=== PATIENT | male | born 1980 | race Caucasian/White ===

== ENCOUNTER → 2019-12-12 14:07 | Outpatient (BNVA) | payer OTHER, SELFPAY | PROVIDERS: PCP Internal Medicine; Visit Provider Urology | DX: Z76.89 Persons encountering health services in other specified circumstances (principal) | CPT/HCPCS: 99202 ==

== ENCOUNTER → 2020-01-23 11:26 | Outpatient (BNVA) | payer OTHER, SELFPAY | PROVIDERS: PCP Internal Medicine; Visit Provider Urology | DX: Z76.89 Persons encountering health services in other specified circumstances (principal) | CPT/HCPCS: 99202 ==

== ENCOUNTER → 2020-04-16 14:29 | Outpatient (BNVA) | payer OTHER, SELFPAY | PROVIDERS: PCP Internal Medicine; Visit Provider Urology | DX: F41.8 Other specified anxiety disorders (principal) | CPT/HCPCS: 99212 ==

== ENCOUNTER 2020-05-19 11:52 | Outpatient (REF) | payer OTHER, SELFPAY | END 2020-05-19 11:53 | disposition home or self-care (01) | LOC: HO.HMGCLDS 11:52 | PROVIDERS: PCP Internal Medicine; Visit Provider Internal Medicine | DX: Z20.822 Contact with and (suspected) exposure to COVID-19 (principal) | CPT/HCPCS: C9803; U0003; U0005 ==

== ENCOUNTER → 2020-07-08 09:53 | Outpatient (BNVA) | payer OTHER, SELFPAY | PROVIDERS: PCP Internal Medicine; Visit Provider Physician Assistant | DX: S66.312A Strain of extensor muscle, fascia and tendon of right middle finger at wrist and hand level, initial encounter (principal); W50.1XXA Accidental kick by another person, initial encounter | CPT/HCPCS: 73140; 99203 ==

== ENCOUNTER → 2020-07-15 12:58 | Outpatient (BNVA) | payer OTHER, SELFPAY | PROVIDERS: PCP Internal Medicine; Visit Provider Physician Assistant | DX: S60.031A Contusion of right middle finger without damage to nail, initial encounter (principal); W22.09XA Striking against other stationary object, initial encounter | CPT/HCPCS: 99213 ==

== ENCOUNTER → 2022-03-14 10:51 | Outpatient (BNVA) | payer OTHER, SELFPAY | PROVIDERS: PCP Internal Medicine; Visit Provider Internal Medicine | DX: S76.312A Strain of muscle, fascia and tendon of the posterior muscle group at thigh level, left thigh, initial encounter (principal); S50.01XA Contusion of right elbow, initial encounter; S30.0XXA Contusion of lower back and pelvis, initial encounter; W01.190A Fall on same level from slipping, tripping and stumbling with subsequent striking against furniture, initial encounter | CPT/HCPCS: 71101; 73080; 73562; 99203 ==

== ENCOUNTER → 2022-03-17 13:59 | Outpatient (BNVA) | payer OTHER, SELFPAY | PROVIDERS: PCP Internal Medicine; Visit Provider Internal Medicine | DX: S76.312A Strain of muscle, fascia and tendon of the posterior muscle group at thigh level, left thigh, initial encounter (principal); S50.01XA Contusion of right elbow, initial encounter; S20.211A Contusion of right front wall of thorax, initial encounter; W01.190A Fall on same level from slipping, tripping and stumbling with subsequent striking against furniture, initial encounter | CPT/HCPCS: 99213 ==

== ENCOUNTER 2022-03-24 19:41 | Outpatient (REF) | payer OTHER, SELFPAY ==
--- NOTE | ~2022-03-24 | MR_ITS ---
EXAMINATION: MR FEMUR WITHOUT CONTRAST, LEFT CLINICAL INFORMATION: Distal hamstring pain. Bruising. Pain and swelling. Difficulty with weightbearing. Popping and pain at the posterior thigh. COMPARISON: Left knee radiographs dated 03/14/2022. TECHNIQUE: Multisequence MR imaging of the left femur was obtained without contrast on a high-field strength scanner. FINDINGS: BONE: No acute osseous injury. No marrow edema. No stress reaction, fracture, or avascular necrosis. No concerning lytic or blastic osseous lesion. MUSCLES/TENDONS: Complete tear of the distal semitendinosus tendon with proximal retraction of the tendon fibers. The resultant tendon gap measures up to 12.9 cm in craniocaudal dimension with fluid in the tendon gap. Mild adjacent soft tissue edema. The remaining visualized muscles and tendons are intact. SOFT TISSUES: No additional soft tissue mass or fluid collection. MR/MR femur LT wo con IMPRESSION: Complete tear of the distal semitendinosus tendon with proximal retraction of the tendon fibers measuring up to 12.9 cm in craniocaudal dimension. Mild adjacent soft tissue edema.
== END 2022-03-24 19:42 | disposition home or self-care (01) ==
LOC: HO.MRI 19:41
PROVIDERS: PCP Internal Medicine; Visit Provider Internal Medicine
DX: M79.652 Pain in left thigh (principal); W19.XXXA Unspecified fall, initial encounter
CPT/HCPCS: 73718

== ENCOUNTER → 2022-03-25 13:29 | Outpatient (BNVA) | payer OTHER, SELFPAY | PROVIDERS: PCP Internal Medicine; Visit Provider Internal Medicine | DX: S76.312D Strain of muscle, fascia and tendon of the posterior muscle group at thigh level, left thigh, subsequent encounter (principal); W01.190D Fall on same level from slipping, tripping and stumbling with subsequent striking against furniture, subsequent encounter | CPT/HCPCS: 99213 ==

== ENCOUNTER 2024-07-01 10:36 | Outpatient (REF) | payer OTHER, SELFPAY ==
--- NOTE | ~2024-07-01 | XR_ITS ---
EXAMINATION: XR FINGERS RIGHT HISTORY: M79.644 - Pain in right finger(s) COMPARISON: There are no prior studies available for comparison. FINDINGS: Three views of the right 5th finger are submitted. Osseous mineralization is normal. There is no fracture or dislocation. The joint spaces are preserved. The soft tissues are unremarkable. XR/XR finger RT min 2V IMPRESSION: Unremarkable examination of the right 5th finger. Electronically signed by: Matt Sarmiento MD 07/01/2024 01:48 PM EDT
--- OUTSIDE RECORDS SUMMARY | 2024-07-02 11:47 | XMS_ITS | Clinical Summary ---
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
--- OUTSIDE RECORDS SUMMARY | 2024-07-02 11:48 | XMS_ITS | Continuity of Care Document ---
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 entered. Ordering Provider: GAEL CAMP Report Released Date/Time: Mar 01, 2024 05:03 PM Reporting Lab: [facility] HOSPITALRL WSTRN [facility] CENTERUSETS [address] [address] Performing Lab: [facility]OMEN'S HOSPITALRL WSTRN [facility] CENTERUSETS [address] [address] [facility] HOSPITALRL WSTRN [place] [facility] TSH THYROTROPI N [UNITS/VOL UME] IN SERUM OR PLASMA 0.93 u[IU]/mL 0.35 - 5.00 04/18 Specimen Type: SERUM No comment entered. Ordering Provider: GAEL CAMP Report Released Date/Time: Mar 01, 2024 05:03 PM Reporting Lab: [facility] HOSPITALRENCOM[facility] COUNTYTRN [facility] CENTERUSE[address] [address] Performing Lab: H[facility] WOMEN'S HOSPITALRL TRN [facility] CENTERUSETS [address] [address] [facility] HOSPITALRMOBILE INFIRMARY MEDICAL CENTERN [facility] CENTERUSE [facility] BASIC METABOLI C PANEL (non-fas ting) UREA NITROGEN [MASS/VOLU ME] IN SERUM OR PLASMA 20 mg/dL 7 - 25 10/05 Specimen Type: SERUM No comment entered. Ordering Provider: REINA HERNANDEZ Report Released Date/Time: Oct 05, 2022 02:47 PM Reporting Lab: [facility] HOSPITALRL TRN [place] [address] [address] Performing Lab: [facility] HOSPITALRL [place]STRN [place] [address] [address] [place] BASIC METABOLI C PANEL (non-fas ting) GLUCOSE [MASS/VOLU ME] IN SERUM OR PLASMA 73 mg/dL 65 - 100 10/05 Specimen Type: SERUM No comment entered. Ordering Provider: REINA HERNANDEZ Report Released Date/Time: Oct 05, 2022 02:47 PM Reporting Lab: [facility] HOSPITALRL WSTRN [facility] CENTERUSE[address] [address] Performing Lab: [facility] HOSPITALRENCOM[facility] COUNTYTRN [facility] CENTERUSE[address] [address] [place] BASIC METABOLI C PANEL (non-fas ting) SODIUM [MOLES/VOL UME] IN SERUM OR PLASMA 140 mmol/L 135 - 145 10/05 Specimen Type: SERUM No comment entered. Ordering Provider: REINA HERNANDEZ Report Released Date/Time: Oct 05, 2022 02:47 PM Reporting Lab: [facility] HOSPITALRENCOM[facility] HOS[facility] SHELBY COUNTYTRN [address] [address] Performing Lab: [facility]OMEN[facility]S HOSPITALRL TRN [facility] CENTERUSE[address] [address] [place] BASIC METABOLI C PANEL (non-fas ting) POTASSIUM [MOLES/VOL UME] IN SERUM OR PLASMA 4.2 mmol/L 3.5 - 5.0 10/05 Specimen Type: SERUM No comment entered. Ordering Provider: REINA HERNANDEZ Report Released Date/Time: Oct 05, 2022 02:47 PM Reporting Lab: [facility] HOSPITALRL TRN [facility] CENTERUSE[address] [address] Performing Lab: [facility] HOSPITALRENCOM[facility] COUNTYTRN [facility] CENTERUSE[address] [address] [place] BASIC METABOLI C PANEL (non-fas ting) CHLORIDE [MOLES/VOL UME] IN SERUM OR PLASMA 106 mmol/L 100 - 110 10/05 Specimen Type: SERUM No comment entered. Ordering Provider: REINA HERNANDEZ Report Released Date/Time: Oct 05, 2022 02:47 PM Reporting Lab: [facility] HOSPITALRENCOM[facility] COUNTYTRN [facility] CENTERUSETS [address] [address] Performing Lab: [facility] HOSPITALRENCOM[facility] COUNTYTRN [facility] CENTERUSE[address] [address] [place] BASIC METABOLI C PANEL (non-fas ting) CARBON DIOXIDE, TOTAL [MOLES/VOL UME] IN SERUM OR PLASMA 24 meq/L 20 - 30 10/05 Specimen Type: SERUM No comment entered. Ordering Provider: REINA HERNANDEZ Report Released Date/Time: Oct 05, 2022 02:47 PM Reporting Lab: [facility] HOSPITALRENCOM[facility] SHEL[facility] COUNTYTRN [address] [address] Performing Lab: [facility]ITALN [facility] [address] [facility] [address] [place] BASIC METABOLI C PANEL (non-fas ting) CREATININE [MASS/VOLU ME] IN SERUM OR PLASMA 1.31 mg/dL 0.50 - 1.40 10/05 Specimen Type: SERUM No comment entered. Ordering Provider: REINA HERNANDEZ Report Released Date/Time: Oct 05, 2022 02:47 PM Reporting Lab: [facility]ITALN [address] [address] Performing Lab: [address] [address] [employer] BASIC METABOLI C PANEL (non-fas ting) GLOMERULAR FILTRATION RATE/1.73 SQ M.PREDICTE D [VOLUME RATE/AREA] IN SERUM, PLASMA OR BLOOD BY CREATININE -BASED FORMULA (CKD-EPI) 70 mL/min 60 10/05 Specimen Type: SERUM No comment entered. Ordering Provider: REINA HERNANDEZ Report Released Date/Time: Oct 05, 2022 02:47 PM Reporting Lab: [facility]N [address] [address] Performing Lab: [address] [address] [place] HEMOGLOB IN A1C PANEL HEMOGLOBIN A1C/HEMOGL OBIN.TOTAL [...] 9.27. Ref: http://www. ngsp.org/[place] Pdata.asp Ordering Provider: ERINA HERNANDEZ Report Released Date/Time: Oct 05, 2022 02:47 PM Reporting Lab: [address] [address] Performing Lab: [facility] [address] [facility] [address] [place] LIPID PANEL, NON FASTING CHOLESTERO L [MASS/VOLU ME] IN SERUM OR PLASMA 188 mg/dL 10/05 Specimen Type: SERUM No comment entered. Ordering Provider: REINA HERNANDEZ Report Released Date/Time: Oct 05, 2022 02:47 PM Reporting Lab: [facility]OSPITALRENCOM[facility] COUNTYTRN [address] [address] Performing Lab: [facility]OMEN'S HOSPITALRL WSTRN [facility] CENTERUSETS [address] [address] [place] LIPID PANEL, NON FASTING TRIGLYCERI DE [MASS/VOLU ME] IN SERUM OR PLASMA 224 mg/dL 0 - 150 10/05 H Specimen Type: SERUM No comment entered. Ordering Provider: REINA HERNANDEZ Report Released Date/Time: Oct 05, 2022 02:47 PM Reporting Lab: [facility] HOSPITALRMOBILE INFIRMARY MEDICAL CENTERN [address] [address] Performing Lab: [facility] WOMEN'S HOSPITALRL TRN [address] [address] [place] LIPID PANEL, NON FASTING CHOLESTERO L IN LDL [MASS/VOLU ME] IN SERUM OR PLASMA BY BALDEMAR Shi 121 mg/dL 0 - 129 10/05 Specimen Type: SERUM No comment entered. Ordering Provider: REINA HERNANDEZ Report Released Date/Time: Oct 05, 2022 02:47 PM Reporting Lab: [facility] HOSPITALRMOBILE INFIRMARY MEDICAL CENTERN [address] [address] Performing Lab: [facility] HOSPITALRENCOM[facility] SHELBY COUNTYTRN [address] [address] [place] LIPID PANEL, NON FASTING CHOLESTERO L.TOTAL/CH OLESTEROL IN HDL [MASS RATIO] IN SERUM OR PLASMA 8.5 10/05 Specimen Type: SERUM No comment entered. Ordering Provider: REINA HERNANDEZ Report Released Date/Time: Oct 05, 2022 02:47 PM Reporting Lab: [facility] HOSPITALRMOBILE INFIRMARY MEDICAL CENTERN [address] [address] Performing Lab: [facility] HOSPITALRL WSTRN [place] [facility] [address] [facility] [address] [place] LIPID PANEL, NON FASTING CHOLESTERO L IN HDL [MASS/VOLU ME] IN SERUM OR PLASMA 22 mg/dL 40 - 60 10/05 L Specimen Type: SERUM No comment entered. Ordering Provider: REINA HERNANDEZ Report Released Date/Time: Oct 05, 2022 02:47 PM Reporting Lab: [facility] HOSPITALRMOBILE INFIRMARY MEDICAL CENTERN [address] [address] Performing Lab: H[facility]S HOSPITALRL [facility]N [facility] CENTERUSE[address] [address] [place] LIVER FUNCTION PROTEIN [MASS/VOLU ME] IN SERUM OR PLASMA 7.4 g/dL 6.0 - 8.3 10/05 Specimen Type: SERUM No comment entered. Ordering Provider: REINA HERNANDEZ Report Released Date/Time: Oct 05, 2022 02:47 PM Reporting Lab: [facility] [address] [address] Performing Lab: H[facility] HOSPITALRL [facility]N [address] [address] [place] LIVER FUNCTION ALBUMIN [MASS/VOLU ME] IN SERUM OR PLASMA 4.3 g/dL 3.5 - 5.0 10/05 Specimen Type: SERUM No comment entered. Ordering Provider: REINA HERNANDEZ Report Released Date/Time: Oct 05, 2022 02:47 PM Reporting Lab: [facility] [address] [address] Performing Lab: [facility] HOSPITALRMOBILE INFIRMARY MEDICAL CENTERN [facility] CENTERUSE[address] [address] [place] LIVER FUNCTION ALKALINE PHOSPHATAS E [ENZYMATIC ACTIVITY/V OLUME] IN SERUM OR PLASMA 63 U/L 40 - 150 10/05 Specimen Type: SERUM No comment entered. Ordering Provider: REINA HERNANDEZ Report Released Date/Time: Oct 05, 2022 02:47 PM Reporting Lab: [facility] HOSPITALRMOBILE INFIRMARY MEDICAL CENTERN [address] [address] Performing Lab: [facility] HOSPITALRMOBILE INFIRMARY MEDICAL CENTERN [address] [address] [facility] LIVER FUNCTION ASPARTATE AMINOTRANS FERASE [ENZYMATIC ACTIVITY/V OLUME] IN SERUM OR PLASMA 29 U/L 5 - 34 10/05 Specimen Type: SERUM No comment entered. Ordering Provider: REINA HERNANDEZ Report Released Date/Time: Oct 05, 2022 02:47 PM Reporting Lab: [address] [address] Performing Lab: [address] [address] [facility] LIVER FUNCTION ALANINE AMINOTRANS FERASE [ENZYMATIC ACTIVITY/V OLUME] IN SERUM OR PLASMA 40 U/L 10/05 Specimen Type: SERUM No comment entered. Ordering Provider: REINA HERNANDEZ Report Released Date/Time: Oct 05, 2022 02:47 PM Reporting Lab: [address] [address] Performing Lab: [address] [address] [facility] LIVER FUNCTION BILIRUBIN. TOTAL [MASS/VOLU ME] IN SERUM OR PLASMA 1.0 mg/dL 0.2 - 1.2 10/05 Specimen Type: SERUM No comment entered. Ordering Provider: REINA HERNANDEZ Report Released Date/Time: Oct 05, 2022 02:47 PM Reporting Lab: [address] [address] Performing Lab: [address] [address] [facility] Vital Signs Combined list of inpatient and outpatient Vital Signs from Department of Defense and Veterans Affairs, ranging from 12 months to all on record, depending upon the facility. Vital Sign Value Date Comments Source SYSTOLIC BLOOD PRESSURE 132 04/18/2024 12:45:58 [place] DIASTOLIC BLOOD PRESSURE 96 04/18/2024 12:45:58 [place] PULSE OXIMETRY 99 04/18/2024 12:45:58 [place] PAIN 0 04/18/2024 12:45:58 [place] TEMPERATURE 98.1 04/18/2024 12:45:58 [place] PULSE 73 04/18/2024 12:45:58 [place] RESPIRATION 16 04/18/2024 12:45:58 [place] SYSTOLIC BLOOD PRESSURE 140 09/29/2023 03:35:00 [place] DIASTOLIC BLOOD PRESSURE 80 09/29/2023 03:35:00 [place] PULSE OXIMETRY 97 09/29/2023 03:35:00 [place] [...] DC Date Status Disposition Source [place] [place] OUTPATIENT [id number] URI DEVI Mendoza 03/22 Released with Work/Duty Limitations [place] [place]- [facility] OUTPATIENT [id number] neck pain for three days BELLA KEY 04/14 Released with Work/Duty Limitations [place] [place]- 7[place] OUTPATIENT [id number] neck JAGDISH CHAVEZ 04/15 Released with Work/Duty Limitations [place] ical [place] ) [place] [facility] [place]) OUTPATIENT [id number] cut left finger NEERU CHAN 05/18 Released w/o Limitations [place]Wind [place] [facility]) [place] [place]-[facility]) OUTPATIENT [id number] BELLA Pack 06/08 Released w/o Limitations [place] [place]- [facility] [facility]AMH M01A CHC Adm) OUTPATIENT [id number] referra l for physica l therapy MILTON, CAYETANO 03/15 Released w/o Limitations [place] ([place] [facility])(AM H M01A CHC Adm) [place]Evin [facility]Phys Therapy) OUTPATIENT [id number] LETTY MARTELL 03/28 Released w/o Limitations [place] ([place]vin [facility])(Ph ys Therapy ) [place] [facility]AMH M01A CHC Adm) OUTPATIENT [id number] perm profile /knee/r esched ms delmy nolen EDIEMYKEL JEFFREY Jessica 04/19 Released w/o Limitations [place] [facility])(AM H M01A CHC Adm) [place]Evin [facility])(Opto metry - Maciel) OUTPATIENT [id number] SRC, PT had traumat ic injury, OD MIRNA EASTMAN 06/05 Released w/o Limitations [place] ([place] [facility]Op tometry - Maciel) L[place]ANIEL[place]Phys[place] [facility] OUTPATIENT [id number] MYKEL CORRAL 12/16 Released w/o Limitations [place] [facility]) [place]ANI[place] OUTPATIENT [id number] FFD, acute back pain MYKEL WOOD 12/16 Released w/o Limitations [place] [facility] [facility] OUT[place] [id number] FFD eval for back pain RACHEL ELLISON 12/17 Released with Work/Duty Limitations [place]ANIEL[place] OUTPATIENT [id number] under 42, meb phys SATHISH OROZCO 12/17 [place] w/o Limitations [place] [facility] [facility] OUTPATIENT [id number] WAB MICAH LIN 12/17 [place] Limitations [place] TELE CONSULT [id number] f/u from finding s by Dr Shawn Diamond y MYKEL WOOD 12/17 [place] OUTPATIENT [id number] f/u MFSE, MRI result/ noelle i, RAQUEL carson shoulde r RADHA Lafleur 03/23 [place] w[place]o Limitations [place] OUTPATIENT [id number] LONG HX BILATER AL SHOULDE R PAIN FACING WAB-MELANIE L FOR ADVANCI NG CARE MYKEL WOOD 05/25 [place]o Limitations [place] OUTPATIENT [id number] rom-kelton at shoulde r pain VALERIO LAWRENCE R 08/10 [place]ased w/o Limitations [place] [facility] [facility] OUT[place]IENT [id number] RE-DO PART 2 WAB RACHEL ELLISON 09/17 Released with Work/Duty Limitations [place] [facility] Outpatient Encounter [id number] Diagnos is: ICD-10- CM Z02.89 Encount er for other adminis trative examina tions WENDY LAYNE 01/02 [place] [facility] [facility] [place] [facility] Outpatient Encounter [id number] 03/02 [facility] [place] [facility] En[facility] [id number] 03/20 [facility] [place] [facility] [facility] [place] Outpatient Encounter [id number] 04/17 [place] [facility] Encounter [id number] 05/17 [facility] [place] [facility] [facility] [place] Encounter [id number] 05/23 [facility] [place] [facility] [place] Outpatient Encounter [id number] 05/23 [facility] O/P EST HI 40 MIN [id number] Diagnos is: ICD-10- CM M54.50 Low back pain, unspeci fied HORNER,VICT ORIA J 06/14 [place] [facility] Encounter [id number] 06/21 [facility] [place] [facility] En[facility] [id number] 07/11 [facility] [place] [facility] [facility] [place] OFF[facility] O/P EST SF 10 MIN [id number] Diagnos is: ICD-10- CM M54.50 Low back pain, unspeci fied GAUNYA,CHR ISTOPHER M 07/12 [facility] Encounter [id number] 07/13 [facility] [place] [facility] [facility] [place] Encounter [id number] 07/31 [facility] [place] OFFICE O/P EST MOD 30 MIN [id number] Diagnos is: ICD-10- CM I10 Essenti al (primar y) hyperte nsion ZIMMERMAN,DA VID A 09/27 [place] [facility] OFF/OP EST JUNE X REQ PHY/QHP [id number] Diagnos is: ICD-10- CM Z71.89 Other specifi ed education counselor ing ASHLYN BELLA O 10/02 [place] [facility] Outpatient Encounter [id number] 10/10 [facility] Outpatient Encounter [id number] 10/16 [facility] Outpatient Encounter [id number] 01/15 [facility] PRO PHONE CALL 5-10 MIN [id number] Diagnos is: ICD-10- CM F90.9 Attenti on-defi cit hyperac tivity disorde r, unspeci fied type ME CHRISTY TAYLOR N 01/23 [facility] Outpatient Encounter [id number] 01/23 [facility] OFF/OP CONSLTJ NEW/EST HI 55 [id number] Diagnos is: ICD-10- CM 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, combine d type CONRADOGAEL T 03/01 [facility] Out[facility] Encounter [id number] 03/01 [facility] Encounter [id number] 03/01 [facility] En[facility] [id number] 04/17 [facility] [place] OFF/OP EST JUNE X REQ PHY/QHP [id number] Diagnos is: ICD-10- CM M25.541 Pain in joints of right hand HAYDER LARA IC K 04/18 [place] [facility] Encounter [id number] 04/18 [facility] Encounter [id number] 04/19 [facility] Encounter [id number] 04/22 [facility]counter [id number] 04/22 [facility] Out[facility] Encounter [id number] 04/29 [facility] OFFICE O/P EST SF 10 MIN [id number] Diagnos is: ICD-10- CM M79.643 Pain in unspeci fied hand KEMAR,BEBE TIMOTEO M 04/29 [facility] SYN[facility] AUDIO-VIDE O EST MOD 30 [id number] Diagnos is: ICD-10- CM 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, combine d type GAEL CAMP 05/03 [facility] Outpatient Encounter [id number] 05/03 [facility] Out[facility] Encounter [id number] 05/08 [facility] Out[facility] Encounter [id number] 06/04 [facility] Out[facility] Encounter [id number] 06/04 [facility] Out[facility] Encounter [id number] 06/05 [facility] Out[facility] Encounter [id number] 06/07 [facility] [...] Psychiatric Evaluation Review of Records and Reports [id number] 09/18/19 10 ZAHRA ALCARAZ [facility] Psychiatric Therapy Preparation of Psychiatric Status Report Psychiatric Therapy Preparation of Psychiatric Status Report [id number] 09/18/19 10 ZAHRA ALCARAZ [facility] Psychiatric Evaluation Comprehensive Examination Psychiatric Evaluation Comprehensive Examination [id number] 09/18/19 10 ZAHRA ALCARAZ [facility] Range Of Motion Evaluation Of Extremity Range Of Motion Evaluation Of Extremity 79409 08/11/19 10 LAWRENCE LUO [facility] Patient Counseling Medical Management Individual Patient Patient Counseling Medical Management Individual Patient [id number] 12/18/19 09 CHEYENNE BURKS Threshold Audiogram (Pure Tone) Threshold Audiogram (Pure Tone) 12307 12/18/19 09 CHEYENNE BURKS Visual Function Screening Visual Function Screening 30065 12/18/19 09 SATHISH OROZCO [facility] Range Of Motion Evaluation Of Extremity Range Of Motion Evaluation Of Extremity 97527 12/17/19 09 MYKEL CORRAL [facility] Spectacles Services Fitting Monofocals (Not For Aphakia) Spectacles Services Fitting Monofocals (Not For Aphakia) 94891 06/06/19 07 MIRNA EASTMAN Determination Of Refractive State Determination Of Refractive State 83520 06/06/19 07 MIRNA EASTMAN Ophthalmological New Patient Start Comprehensive Care Ophthalmological New Patient Start Comprehensive Care [id number] 06/06/19 07 MIRNA EASTMAN Physical Medicine - Group Physical Therapy Se ion Physical Medicine - Group Physical Therapy Session [id number] 03/28/19 06 LETTY MARTELL Phys Therapy Education Self Care Training - Per 15 Minutes Phys Therapy Education Self Care Training - Per 15 Minutes [id number] 03/28/19 06 LETTY MARTELL Physical Medicine Physical Therapy Evaluation Physical Medicine Physical Therapy Evaluation [id number] 04/15/19 05 JAGDISH CHAVEZ Exercises A isted Exercises For ROM Exercises Assisted Exercises For ROM 60863 04/15/19 05 JAGDISH CHAVEZ Training And Self-Care Skills Additional 15 Minutes Training And Self-Care Skills Additional 15 Minutes 89092 04/15/19 05 JAGDISH CHAVEZ Modalities Cryotherapy Cold Packs Modalities Cryotherapy Cold Packs [id number] 04/15/19 05 JAGDISH CHAVEZ APPLICATION OF A MODALITY TO 1 OR MORE AREAS; HOT OR COLD PACKS 04/15/19 05 [facility] PHYS/OTH QUALIFIED HEALTH INLETTER QUALIFIED,EDUCATION,T RAIN,LICENSURE/REGULA TION (WHEN APPLICABLE) EDUC SER RENDERED TO PATS IN A GRP SETTING (EG,,OBESITY, OR DIABETIC INSTRUCT) 03/03/19 05 [facility] SKIN TEST; TUBERCULOSIS, INTRADERMAL 06/07/19 07 [facility] FITTING OF SPECTACLES, EXCEPT FOR APHAKIA; MONOFOCAL 06/06/19 07 [facility] ANTHRAX VACCINE, FOR SUBCUTANEOUS OR INTRAMUSCULAR USE 06/03/19 06 [facility] SELF-CARE/HOME MANAGMENT TRAIN (EG,ACT OF DAILY LIVING (ADL) &COMPENSAT TRAIN,MEAL PREPARATION,SAFETY PROCS,AND INSTRUCT IN USE OF ASST TECHNOLOGY DEV/ADPT EQUIP) DIR ONE-ON-ONE CONT,EA 15 MINUTES 03/28/19 06 [facility] HEPATITIS B VACCINE (HEPB), ADULT DOSAGE, 3 DOSE SCHEDULE, FOR INTRAMUSCULAR USE 03/02/19 06 [facility] PSYCHIATRIC EVALUATION OF HOSPITAL RECORDS, OTHER PSYCHIATRIC REPORTS, PSYCHOMETRIC AND/OR PROJECTIVE TESTS, AND OTHER ACCUMULATED DATA FOR MEDICALDIAGNOSTIC PURPOSES 09/18/19 10 [facility] RANGE OF MOTION MEASUREMENTS AND REPORT (SEPARATE PROCEDURE); EACH EXTREMITY (EXCLUDING HAND) OR EACH TRUNK SECTION (SPINE) 08/11/19 10 [facility] EDUCATION &TRAINING, PATIENT SELF-MGT QUALIFIED, NONPHYSICIAN HEALTH INLETTER USING STDIZED CURRICULUM, [id number] W THE PATIENT (COULD INCL CAREGIVER/FAMILY) EA 30 MIN; INDIVIDUAL PATIENT 12/18/19 09 [facility] VIS FUNCT SCREEN,AUTOMAT/SEMI-A UTOMAT BILAT QUANT DETERM VISUAL ACUITY,OCULAR ALIGN,COLOR VISION,PSEUDOISOCHROM AT PLATES,& FIELD VIS (MAY INC ALL/SOME SCRN DETERM FOR CONTRAST SENSITIV,VIS UND GLARE) 12/18/19 09 [facility] RANGE OF MOTION MEASUREMENTS AND REPORT (SEPARATE PROCEDURE); EACH EXTREMITY (EXCLUDING HAND) OR EACH TRUNK SECTION (SPINE) 12/17/19 09 [facility] Social History Combined list of available smoking, tobacco, and other social history from 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 Social History Type Response Date Comment [facility] Tobacco smoking status [facility] [place] History of tobacco use VA-TOBACCO FORMER USER 10/05/2022 [place] History of tobacco use QUIT TOBACCO USE > 7 YEARS AGO 04/16/2013 NO [place] History of tobacco use QUIT TOBACCO USE 1-7 YEARS AGO 04/02/2012 [place] History of tobacco use QUIT TOBACCO USE 1-7 YEARS AGO 03/21/2011 [place] History of tobacco use QUIT TOBACCO USE 1-7 YEARS AGO 11/11/2009 [place] History of tobacco use QUIT TOBACCO USE 1-7 YEARS AGO 08/27/2008 quit 2 years ago. [place] History of tobacco use QUIT TOBACCO USE 1-7 YEARS AGO [facility] History of tobacco use QUIT TOBACCO USE 1-7 YEARS AGO 04/02/[facility] History of tobacco use CURRENT SMOKER 07/24/2006 JONNIE This section is an empty social history section. [facility] Plan of Care List of future care activities from Department of 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 Additional future care activities may be listed in the Assessment and Plan section. Date/Time Care Activity Care Activity Detail Facili ty 07/01/2024 AMBULATORY - MEDICINE [facility]
== END 2024-07-01 10:37 | disposition home or self-care (01) ==
LOC: HO.HOSX 10:36
DX: S63.616A Unspecified sprain of right little finger, initial encounter (principal)
CPT/HCPCS: 73140

== ENCOUNTER 2024-07-01 13:15 | Outpatient (AMB) | payer OTHER, SELFPAY ==
[2024-07-01 13:21] VITALS: BMI 33.6
--- NOTE | 2024-07-01 13:21 | A.OFFVIS_ITS ---
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 Referral states injury occurred on 04/17/24 however patient states injury happened the end of April,. Patient states he fell down the stairs, unsure how he injured his finger. Patient reports pain at the MCP joint, reports tenderness. Denies numbness, tingling, finger locking. Patient is not taking anything for pain at this time. 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 Referral states injury occurred on 04/17/24 however patient states injury happened the end of April,. Patient states he fell down the stairs, unsure how he injured his finger. Patient reports pain at the MCP joint, reports tenderness. Patient reports that most of this pain is on the dorsal and radial aspect of the 5th MCP joint. Denies numbness, tingling, finger locking. Patient is not taking anything for pain at this time. 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 Neuro: Normal sensation of the tips of all digits of the right hand at this time Vascular: Cap refill brisk Pain: Tenderness to palpation about the dorsal and radial aspect of the 5th MCP joint of the right hand No tenderness to palpation of the ulnar aspect No tenderness to palpation elsewhere in the right hand or 5th digit There are Good endpoints with varus and valgus testing of the MCP joint of the right small finger, but patient does report significant pain, particularly with testing of the radial collateral ligament of the right 5th MCP. ROM: Patient is able to make a closed fist and extend all digits of the right hand fully and without difficulty Skin: No lacerations or abrasions. General: No ecchymosis, erythema, or evidence of infection. Psych: Appears grossly normal Affect normal Attitude cooperative Results Reviewed Results Reviewed: X-rays obtained in the office today and independently reviewed by me, Tarik Reyes PA-C, demonstrate no fracture or acute bony abnormality of the right small finger. Assessment & Plan Assessment & Plan (1) Finger pain, right: Code(s): M79.644 - Pain in right finger(s) Category: Medical (2) Sprain of right little finger: Code(s): S63.616A - Unspecified sprain of right little finger, initial encounter Category: Medical Plan 1. Sprain of radial collateral ligament of right small finger MCP joint Patient is educated about this condition Patient is educated about the typical treatment course At this time, patient is informed that there is no acute surgical intervention indicated for this injury Patient is referred to occupational therapy for range of motion and strengthening of the right hand in the setting of this injury Patient is also advised that he can carlene tape the fingers in high-risk situations to prevent the finger from wrenching and causing significant pain Patient is amenable to this plan Follow-up as needed Orders: Orders XR finger RT min 2V Today M79.644 - Pain in right finger(s) OT Evaluation and Treatment Today M79.644 - Pain in right finger(s) Coding Level of Care Code New Pt Level 3 (18750) Diagnoses Finger pain, right M79.644 Sprain of right little finger S63.616A
--- OUTSIDE RECORDS SUMMARY | 2024-07-01 13:33 | XMS_ITS | Clinical Summary ---
Author Organization [facility] Address [address] [place] [address] Care Team Providers Care Bench Inspector Name Role Phone Unavailable Primary Care Provider Unavailabl e Social History Tobacco Use Types Packs/Day Years Used Date Smoking Tobacco: Never Assessed Sex and Gender Information Value Date Recorded Sex Assigned at Not on file Legal Sex Male 6:31 PM EDT Gender Identity Not on file Sexual Orientation Not on file Plan of Treatment Health Maintenance Due Date Last Done Comments Hepatitis C Virus Screening 1982 HIV Screening 1995 DTaP/Tdap/Td Vaccines (1 - Tdap) 2001 Hepatitis B Vaccines (1 of 3 - 19+ 3-dose series) 2001 COVID-19 Vaccine (2023-2 5 season) 2023 HPV Vaccines Aged Out No longer eligi ble based on patient's age to complete this topic Pneumococcal Vaccine: Pediat nancie (0-5 Years) and At-Risk Patients (6 to 49 Years) Aged Out No longer eligible b ased on patient's age to complete this topic
--- OUTSIDE RECORDS SUMMARY | 2024-07-01 13:33 | XMS_ITS | Encounter Summary ---
Author Name [facility] Address [address] [place] [address] Care Team Providers Care Project Engineer Chemicals Name Role Phone MEHUL ZIMMERMAN Primary Care Provider Unavailabl e Insurance Providers: All historical and current Section Date Range: From patient's date of to the date document was created. This section includes the names of all active insurance providers for the patient. Insurance Provider Type of Coverage Plan Name Start of Policy Coverage End of Policy Coverage Group Number Member ID Insurance Provider's Telephone Number Policy Carrington's Name Patient's Relationship to Policy Carrington [employer] July 11, 2006 TRRX [id number] MCKAY,CHR ISTOPHER PATIENT [employer] TRICA RE DODA* Feb 20, 2017 DODA [id number] [phone] MCKAY,CHR ISTOPHER PATIENT [facility] 2017 [facility] T Feb 20, 2017 (WNR) [facility] [id number] [phone] MCKAY,CHR ISTOPHER PATIENT [facility] 2024 [facility]LE[facility] T Feb 21, 2024 [id number] MCKAY,CHR ISTOPHER PATIENT [employer] (WNR) STAND ELI July 11, 2006 [facility] [id number] [facility] PATIENT Selected Encounter This section includes the information on record at [place] for the Encounter. Date/Time Encounter Type Encounter Description Reason Provider Source Oct 03, 2023 10:00 AM OFF/OP EST JUNE X REQ PH[facility] ICD-10-CM Z71.89 Other specified counseling MARY BELLA Marisabel Encounter Template Text not used by [place] Assessments - Encounter Diagnoses This section includes the primary and secondary diagnoses documented for the Encounter. Date/Time Primary/Secondary Diagnosis Diagnosis Name Provider Source Oct 03, 2023 04:15 PM PRIMARY Other specified counseling MARY BELLA ASHER Plan of Treatment: Future Appointments (+ 6 months) and Future Tests (+/- 45 days) The Plan of Treatment section includes future care activities for the patient from all [place] [facility] This section includes future appointments and future orders which are active, pending or scheduled. Future Appointments This section includes appointments that were scheduled to occur 6 months from the date of the Encounter, up to a maximum of 20 appointments. The data comes from all [facility]. Appointment Date/Time Appointment Type Appointme nt Facility Name Oct 04, 2023 02:30 PM AMBULATORY - NONE [facility] Oct 09, 2023 10:00 AM AMBULATORY - NONE [facility] Mar 01, 2024 04:00 PM AMBULATORY - PSYCHIATRY [facility] Mar 01, 2024 04:00 PM [facility] Active, Pending, and Scheduled Orders This section includes a listing of several types of active, pending, and scheduled orders, including clinic medications orders, diagnostic test orders, procedure orders and consult orders; where the start date of the order is 45 days before the date of the Encounter or 45 days after the date of theEncounter. The data comes from all [facility]. Test Date/Time Test Type Test Details Facility Name Sep 28, 2023 12:00 AM Laboratory - Chemi stry Order VITAMIN D (25-OH) BLOOD (SST-SERUM) [facility] Sep 28, 2023 12:00 AM Laboratory - Chemi stry Order MAGNESIUM BLOOD (SST-SERUM) [facility] Sep 28, 2023 12:00 AM Laboratory - Chemi stry Order VITAMIN B12 BLOOD (SST-SERUM) [facility] Sep 28, 2023 12:00 AM Laboratory - Chemi stry Order CBC AND DIFF (AUTO) BLOOD (LAV-BLOOD) [facility] Sep 28, 2023 12:00 AM Laboratory - Chemi stry Order URINALYSIS URINE [facility] Sep 28, 2023 12:00 AM Laboratory - Chemi stry Order MICROALBUMIN CREATININE RATIO PANEL URINE (RANDOM) [facility] Sep 28, 2023 12:00 AM Laboratory - Chemi stry Order LIPID PANEL, NON FASTING BLOOD (SST-SERUM) [facility] Sep 28, 2023 12:00 AM Laboratory - Chemi stry Order LIVER FUNCTION BLOOD (SST-SERUM) [facility] Sep 28, 2023 12:00 AM Laboratory - Chemi stry Order BASIC METABOLIC PANEL (non-fasting) BLOOD (SST-SERUM) [facility] Sep 28, 2023 12:00 AM Laboratory - Chemi stry Order TSH BLOOD (SST-SERUM) [facility] Sep 28, 2023 12:00 AM Laboratory - Chemi stry Order HEMOGLOBIN A1C PANEL BLOOD (LAV-BLOOD) [facility] Social History: Smoking Status (Most current) and Tobacco Use (All prior to encounter date) This section includes the most current, and the historical, smoking and tobacco- related health factors from the [place] facility where the Encounter took place. Current Smoking Status This section includes the most current smoking, or tobacco-related health factor, from the [place] facility where the Encounter took place. Date/Time Current Smoking Status Comment Facil [facility] Sep 28, 2023 03:30 PM VA-TOBACCO NEVER USED [facility] Tobacco Use History This section includes a history of the smoking, or tobacco-related health factors, that were collected on or before the date of the Encounter. The data comes from the [place] facility where the Encounter took place. Date/Time Smoking Status/Tobacco Use Comment F acility Oct 05, 2022 02:00 PM VA-TOBACCO FORMER USER [place] Oct 05, 2022 02:00 PM VA-TOBACCO QUIT 5 TO < 15 YRS [facility] [facility] Apr 16, 2013 10:54 AM QUIT TOBACCO USE > 7 YEARS AGO NO [place] Apr 02, 2012 01:46 PM QUIT TOBACCO USE 1-7 YEARS AGO [facility] [facility] Encounter Notes: All associated encounter notes This section contains the clinical notes associated to the Encounter. Date/Time Encounter Note(s) Provider Source Oct 03, 2023 03:56 PM SOCIAL WORK CONSUL T: LOCAL TITLE: CONSULT REPORT/MENTAL HEALTH/SOCIAL WORK STANDARD TITLE: SOCIAL WORK CONSULT DATE OF NOTE: OCT 03, 2023@15:56 ENTRY DATE: OCT 03, 2023@15:57:02 AUTHOR: MARY BELLA COSIGNER: URGENCY: STATUS: COMPLETED VA Video Connect (VVC) Standard Documentation VVC Clinician Resources Only: E911 (Emergency Call Relay Center): [phone] [facility] Crisis Line - [address] [facility] Suicide Coordinator [phone], Ext. [phone]; Back-up Ext. [phone] [place] Police, [place], [place] [phone] Introduction: Visit is being conducted by [place] [employer]. Hutchins identified with 2 identifiers: [X] Full Name [X] Date of [ ] VA ID Card Emergency Plan: confirmed and/or provided the following information in case of emergency or technology failure. PATIENT PHONE - PHONE NUMBER [CELLULAR] - Is patient phone number correct, if not, enter below: Hutchins's phone number: s/p OSCAR MCKAY [address], [place], [address] Hutchins's present location and address for appointment: s/a Hutchins's emergency contact name and phone number: as in chart Hutchins reported that location is private and safe: Yes Informed Consent: Hutchins informed of the risks and benefits of Telehealth video care. Hutchins has the right to refuse video services. If refuses video visit, a [id number] visit will be scheduled. verbalized consent for this video visit: Yes Hutchins provided consent for any other persons present for visit: N/A If yes, who and relationship to patient: Secure visit: Visit was locked for security and privacy: Yes is referred to by Medical, purpose of today's appt is to clarify request and to gather some information. 43 y/o, w/m, [place], OEF . He is rated at 100% SC, 70% for PTSD. I've been seeing a therapist in the community for about a year now, I found a therapist bc I was going through some romance relationship problems. Well as she has gotten to know me she really thinks I have ADHD pretty bad. She been suggesting I see someone for medication for a while now, I told my primary and he put in the consult. He describes his ADHD- I go up into the attic to work on a project and I am like paralyzed, I can do the work but I just can't organize myself. And then when I do start I don't stop no matter what. I will go and try to find a tool I had in my hand just a few minutes before not knowing where I put it. I walk into a room to get something and I forget why I am there. As he is describing this it is obvious he is quite frustrated and annoyed w himself. Review of chart, in 2012 he and an intake done by Katerin Tapia and did see Dr Bernal a few times. He was also seen at the [facility] for about a year but didn't have a good connection w the therapist so he just stopped. Hutchins was cooperative, leading questions asked, he was able to explain himself well. Consults placed. /maia/ DREW Myers SENIOR SQL SERVER DEVELOPER Signed: 10/03/2023 16:15 MARY BELLA [place]
--- OUTSIDE RECORDS SUMMARY | 2024-07-01 13:34 | XMS_ITS | Encounter Summary ---
Author Name [facility] [place] Address [address] [place] [address] Care Team Providers Care Supervisor Nuclear Medicine Name Role Phone MEHUL ZIMMERMAN Primary Care [...] SCRIPTS PRESCRIPT ION July 11, 2006 TRRX [id number] NELY,CHR ISTOPHER PATIENT EXPRESS SCRIPTS TRICA RE DODA* Feb 20, 2017 DODA [id number] [phone] NELY,CHR ISTOPHER PATIENT [facility] 2017 SELEC T Feb 20, 2017 (WNR) SELECT [id number] [phone] MCKAY,CHR ISTOPHER PATIENT [facility] 2024 SELEC T Feb 21, 2024 [id number] NELY,CHR ISTOPHER PATIENT ZZTRICARE (WNR) STAND ELI July 11, 2006 [facility] [id number] [phone] [facility] PATIENT Selected Encounter This section includes the information on record at [place] for the Encounter. Date/Time Encounter Type Encounter Description Reason Provider Source Apr 29, 2024 02:30 PM OFFICE O/P EST SF 10 MIN GENERAL INTERNAL MEDICINE ICD-10-CM M79.643 Pain in unspecified hand ROSA ELENA REINOSO IHE Encounter Template Text not used by [place] Assessments - Encounter Diagnoses This section includes the primary and secondary diagnoses documented for the Encounter. Date/Time Primary/Secondary Diagnosis Diagnosis Name Provider Source Apr 29, 2024 03:06 PM PRIMARY Pain in unspecified hand [facility]A [facility]LE[facility] [place] [facility] Plan of Treatment: Future Appointments (+ 6 months) and Future Tests (+/- 45 days) The Plan of Treatment section includes future care activities for the patient from all [place] treatmentfacilities. This section includes future appointments and future orders which are active, pending or scheduled. Future Appointments This section includes appointments that were scheduled to occur 6 months from the date of the Encounter, up to a maximum of 20 appointments. The data comes from all [place] treatment facilities. Appointment Date/Time Appointment Type Appointme nt Facility Name May 03, 2024 05:00 PM AMBULATORY - [place] [facility] [facility] May 03, 2024 05:00 PM AM[place] [facility] July 01, 2024 01:15 PM AMBULATORY - MEDICINE [facility] [place] [facility] July 04, 2024 11:00 AM AMBULATORY - MEDICINE [facility] [place] [facility] July 04, 2024 11:01 AM AMBULATORY - MEDICINE [facility] [place] [facility] Jul 26, 2024 02:30 PM [facility] Aug 09, 2024 02:00 PM AMBUL[place]ORY - [place] [facility] Aug 09, 2024 02:00 PM [facility] [place] [facility] Active, Pending, and Scheduled Orders This section includes a listing of several types of active, pending, and scheduled orders, including clinic medications orders, diagnostic test orders, procedure orders and consult orders; where the start date of the order is 45 days before the date of the Encounter or 45 days after the date of theEncounter. The data comes from all [place] treatment facilities. Test Date/Time Test Type Test Details Facility Name May 03, 2024 05:52 PM Consult Order HOME SLEEP STUDY NOX/SPOPC OUTPT Cons Tumbling Instructor's Choice [facility] May 08, 2024 12:24 PM Consult Order [facility] Cons Tumbling Instructor's Choice [place] Lab Results: +/- 30 days of the encounter This section includes the Chemistry and Hematology Lab Results on record with [place] for the patient. Radiology Reports and Pathology Reports are provided separately, in subsequent sections. Lab Results This section contains the Chemistry/Hematology Results that were resulted 30 days before or 30 daysafter the date of the Encounter. Date/Time Source Result Type Result - Unit Interpretation Reference Range Specimen Type Comment Apr 18, 2024 12:28 PM [facility] DRUGS OF ABUSE URINE Specimen Type: URINE Comment: Urine with Cr <5 is diluted or substituted. Cr between 5 and 20 is very dilute. Urine with SG of 1.001 or less is diluted or substituted. SG of 1.003 or less is very dilute. Urine with a pH <3 or >11 has been adulterated and is unsuitable for testing by our current method. Urine with pH between 3 and 4 OR 10 and 11 may have been adulterated. FENTANYL CONFIRMATION NOT SENT BY LAB. Ordering Provider: GAEL CAMP Released Date/Time: Mar 01, 2024 05:00 PM Reporting Lab: [address] [address] Performing Lab: [address] [address] AMPHETAMINES SCREEN NONE-DETECTED None-Detected, Cutoff = 1000 ng/mL BENZODIAZEPINES SCREEN NONE-DETECTED Non e-Detected, Cutoff = 200 ng/mL COCAINE SCREEN NONE-DETECTED None-Detect ed,Cutoff = 300 ng/mL OPIATES SCREEN NONE-DETECTED None-Detect ed, Cutoff = 300 ng/mL CANNABINOIDS SCREEN POSITIVE HH None-Detect ed,Cutoff = 50 ng/mL BARBITURATES SCREEN NONE-DETECTED None-D etected,Cutoff = 200 ng/mL OXYCODONE SCREEN NONE-DETECTED None-Dete cted, Cutoff = 100 ng/mL BUPRENORPHINE (URINE) NONE-DETECTED None Detected, Cutoff = 10.0 ng/mL ALCOHOL, ETHYL URINE NONE-DETECTED mg/dL NONE-DETECTED, cutoff = 10 mg/dL FENTANYL SCREEN NONE-DETECTED ng/mL Nega tive: Cutoff = 1.00 ng/mL PH, ORLY 6.1 [pH] 4-10 CREATININE, ORLY 107.97 mg/dL >20 SP.GRAVITY, ORLY 1.017 1.003-1.020 Apr 18, 2024 12:28 PM [facility] CBC BLOOD Specimen Type: BLOOD No comment entered. Ordering Provider: GAEL CAMP Report Released Date/Time: Mar 01, 2024 05:03 PM Reporting Lab: [address] [address] Performing Lab: [address] [address] WBC 4.73 10*3/uL 4.50-11.00 RBC 5.29 10*6/uL 4.23-5.66 HGB 15.9 g/dL 12.8-17 HCT 47.4 39.2-50.4 MCV 89.6 fL 82-99 MCHC 33.5 g/dL 30.8-35.1 PLT 228 10*3/uL 140-360 RDW-CV 13.2 12.0-16.0 MCH 30.1 pg 26.2-32.6 Apr 18, 2024 12:28 PM [facility] LIVER FUNCTION SERUM Specimen Type: SERUM No comment entered. Ordering Provider: GAEL CAMP Report Released Date/Time: Mar 01, 2024 05:03 PM Reporting Lab: [address] [address] Performing Lab: [address] [address] PROTEIN,TOTAL 7.3 g/dL 6.0-8.3 ALBUMIN 4.2 g/dL 3.5-5.0 ALKALINE PHOSPHATASE 87 U/L 40-150 AST 47 U/L H 5-34 ALT 87 U/L H BILIRUBIN, TOTAL 0.8 mg/dL 0.2-1.2 Apr 18, 2024 12:28 PM [facility] BASIC METABOLIC PANEL (non-fasting) SERUM Spe cimen Type: SERUM No comment entered. Ordering Provider: GAEL CAMP Report Released Date/Time: Mar 01, 2024 05:03 PM Reporting Lab: [facility] [address] [address] Performing Lab: [facility] [address] [address] UREA NITROGEN 13 mg/dL 7-25 GLUCOSE 84 mg/dL 65-100 SODIUM 138 mmol/L 135-145 POTASSIUM 4.1 mmol/L 3.5-5.0 CHLORIDE 104 mmol/L 100-110 CO2 25 meq/L 20-30 CALCIUM 9.2 mg/dL 8.5-10.2 CREATININE, Serum 1.24 mg/dL 0.50-1.40 eGFR(CKD-EPI 2020) 74 mL/min >60 Apr 18, 2024 12:28 PM [facility] LIPID PANEL, NON FASTING SERUM Specimen Type: SERUM No comment entered. Ordering Provider: GAEL CAMP Report Released Date/Time: Mar 01, 2024 05:03 PM Reporting Lab: [facility] [address] [address] Performing Lab: [facility] [address] [address] CHOLESTEROL 170 mg/dL TRIGLYCERIDE 93 mg/dL 0-150 LDL calculated 119 mg/dL 0-129 CHOL/HDL 5.3 HDL CHOLESTEROL 32 mg/dL L 40-60 Apr 18, 2024 12:28 PM [facility] TSH SERUM Specimen Type: SERUM No comment entered. Ordering Provider: GAEL CAMP Report Released Date/Time: Mar 01, 2024 05:03 PM Reporting Lab: [facility] [address] [address] Performing Lab: [address] [address] TSH 0.93 u[IU]/mL 0.35-5.00 Radiology Reports: +/- 30 days of the encounter Radiology Reports For cases when an order for radiology services may have been completed prior to the date of the Encounter, the report list includes the Radiology Reports that were completed up to 30 days before dateof the Encounter. For cases when an order for radiology services may have been completed after the date of the Encounter, the report list also includes the Radiology Reports that were completed up to30 days after date of the Encounter. The data comes from all [place] treatment facilities. Date/Time Radiology Report Provider Source Apr 18, 2024 01:53 PM HAND3 OR MORE VIEWS(RIGHT): OSCAR MCKAY JENNIFER [id number] -[phone] M Ex Date: APR 18, 2024@13:53 Req Phys: MEHUL ZIMMERMAN Loc: [facility] SICK CALL RN (Req'g Loc) Img Loc: [facility] 1 Service: [place] [address] (Case [id number] COMPLETE) HAND3 OR MORE VIEWS(RIGHT) (RAD Detailed) CPT:11314 Reason for Study: fall with swelling and pain Clinical History: Report Status: Verified Date Reported: APR 19, 2024 Date Verified: APR 19, 2024 Electrifier Operator E-Sig: Report: HAND3 OR MORE VIEWS(RIGHT) HISTORY: fall with swelling and pain COMPARISON: None TECHNIQUE: 3 view(s) of the right hand, submitted to the [place] National Teleradiology Program (NTP) for interpretation. FINDINGS: No evidence of acute fracture or malalignment. Soft tissue swelling about the ulnar aspect of the hand. Scattered early to mild degenerative changes at the interphalangeal joints. No erosions. No soft tissue mineralization. Impression: No acute osseous abnormalities. READING PHYSICIAN: Kaden Webster MD -[id number] 04/19/2024 12:57 PST [facility] National Teleradiology Program [phone] (For Medical Practitioner Use Only) Attention Patients / Veterans: If you have questions or concerns about these test results, please contact your ordering provider or primary care team. Primary Diagnostic Code: NO ALERT REQUIRED Primary Interpreting Staff: RADIOLOGY,OUTSIDE SERVICE, Staff Physician / RADIOLOGY,OUTSIDE SERVICE [facility] Encounter Notes: All associated encounter notes This section contains the clinical notes associated to the Encounter. Date/Time Encounter Note(s) Provider Source Apr 29, 2024 02:28 PM TELEHEALTH NOTE: LOCAL TITLE: TELE EMERGENCY CARE NOTE STANDARD TITLE: TELEHEALTH NOTE DATE OF NOTE: APR 29, 2024@14:28 ENTRY DATE: APR 29, 2024@14:28:43 AUTHOR: ROSA ELENA REINOSO EXP COSIGNER: URGENCY: STATUS: COMPLETED TELE EMERGENCY CARE NOTE Has ADDENDA This is a tele-emergency care visit to address acute/urgent issues. Definitive care on chronic medical issues will be deferred to routine Primary Care appointment/provider. Consult Origin: Referral from the Clinical Contact Center/Call Center Type of Visit: Video Visit: Telehealth Disclosure: Visit conducted by synchronous telehealth. Patient verbal consent obtained. Location/emergency number confirmed. Environment surveyed and all participants identified. Virtual conference room locked. Emergency contact information was obtained as follows: Patient's current address [address], [place] [address] Patient's Phone Number:PATIENT PHONE - PHONE NUMBER [CELLULAR] - Primary NOK: SINA MCKAY Relation: EXTENDED FAMILY M [address], [place] [address] Subjective: 44 y/o Male presents to VCV with c/o VCV with c/o R knuckle pain Reports right 5th digit knuckle pain, swelling s/p injury 04/17/24. States x-ray negative for fx, but PCP advised may require CT. Calling back today reports swelling still prominent and unable to lift 5th digit Interested in further imaging as discussed with PCP ACTIVE PROBLEMS: Code Description R94.5 Abnormal results of liver function studies ([facility] [id number]) F90.2 Attention deficit hyperactivity disorder, combined type ([facility] [id number]) E66.9 Obesity ([facility] [id number]) M54.42 Lumbago with sciatica ([facility] [id number]) F32.A Depression ([facility] [id number]) H91.90 Hearing Loss ([facility] [id number]) F43.12 Chronic Post-Traumatic Stress Disorder ([facility] [id number]) E78.5 Hyperlipidemia ([facility] [id number]) E55.9 Vitamin D Deficiency ([facility] 28536928) D75.1 Erythrocytosis ([facility] [id number]) K21.9 GERD - Gastro-Esophageal Reflux Disease ([facility] [id number]) G47.30 Sleep apnea ([facility] [id number]) N52.9 Erectile dysfunction ([facility] 200243229) Z77.29 Exposure to potentially hazardous substance ([facility] [id number]) M54.50 Low back pain ([facility] [id number]) I10. HTN-Hypertension ([facility] [id number]) M54.51 Lumbosacral strain ([facility] 025580632) M99.03 Somatic dysfunction of lumbar region ([facility] [id number]) M99.04 Somatic dysfunction of sacral region ([facility] [id number]) 719.49 Multiple joint pain ([facility] 33086137) M79.652 Pain of left thigh ([facility] [id number]) ALLERGIES/ADR: SULFA DRUGS Current medications reviewed with patient/caregiver and reconciliation of medications related to today's visit completed, including non-VA medications and discrepancies, if identified, were addressed. Medication changes and the importance of medication management were reviewed with the patient/caregiver today based on individual needs. Patient/caregiver acknowledged understanding of instructions as stated. Objective: NAD-pleasant and dada Unable to perform exam d/t nature of telehealth visit modality Reason for Referral: Musculoskeletal Assessment/Impression: Hand Pain Plan: Will defer to PCP to place [facility] referral to [facility] per pts request Advised pt to c/w Motrin prn Will alert PACT via this note Issue resolved with Tele Emergency Care appointment Patient verbalizes understanding of the care plan Time spent in telephone/video visit: Minutes: 15 /maia/ ROSA ELENA REGAN 1 [facility] Medical Fireworks Assembler Signed: 04/29/2024 15:06 Receipt Acknowledged By: 04/30/2024 14:13 /maia/ NICOLAS APONTE REGISTERED NURSE 05/03/2024 16:27 /es/ MEHUL ZIMMERMAN NP NURSE PRACTITIONER 04/30/2024 ADDENDUM STATUS: COMPLETED PACT RN to defer to provider to review and advise. /maia/ NICOLAS APONTE REGISTERED NURSE Signed: 04/30/2024 14:14 ROSA ELENA REINOSO CN[facility]L [facility]
--- OUTSIDE RECORDS SUMMARY | 2024-07-01 13:34 | XMS_ITS | Encounter Summary ---
Author Name [facility] [place] Address [address] [place] [address] Care Team Providers Care Cruise Consultant Name Role Phone MEHUL ZIMMERMAN Primary Care [...] SCRIPTS PRESCRIPT ION July 11, 2006 TRRX [id number] MCKAY,CHR ISTOPHER PATIENT EXPRESS SCRIPTS TRICA RE DODA* Feb 20, 2017 DODA [id number] MCKAY,CHR ISTOPHER PATIENT [facility] 2017 SELEC T Feb 20, 2017 (WNR) SELECT [id number] MCKAY,CHR ISTOPHER PATIENT [facility] 2024 SELEC T Feb 21, 2024 [id number] [phone] MCKAY,CHR ISTOPHER PATIENT ZZTRICARE (WNR) STAND ELI July 11, [address] [place] [address] [id number] [facility] Selected Encounter This section includes the information on record at [place] for the Encounter. Date/Time Encounter Type Encounter Description Reason Pro vider Source Jan 24, 2024 02:00 PM Outpatient Encounter ADMIN PAT ACTIVTIES (MASNONCT) IHE Encounter Template Text not used by [place] Plan of Treatment: Future Appointments (+ 6 months) and Future Tests (+/- 45 days) The Plan of Treatment section includes future care activities for the patient from all [place] treatmentfacilities. This section includes future appointments and future orders which are active, pending or scheduled. Future Appointments This section includes appointments that were scheduled to occur 6 months from the date of the Encounter, up to a maximum of 20 appointments. The data comes from all [place] treatment facilities. Appointment Date/Time Appointment Type Appointme nt Facility Name Mar 01, 2024 04:00 PM AMBULATORY - [place] [facility] [facility] Mar 01, 2024 04:00 PM [facility] [facility] Apr 18, 2024 12:15 PM [facility] Apr 29, 2024 02:30 PM [facility] [place] [facility] May 03, 2024 05:00 PM AMBULATORY - PS[place]IATRY [place] [facility] [facility] May 03, 2024 05:00 PM AM[place]UL[place] [facility] July 01, 2024 01:15 PM AMBULATORY - MEDICINE [place] [facility] July 04, 2024 11:00 AM [facility] [place] [facility] July 04, 2024 11:01 AM [facility] Encounter Notes: All associated encounter notes This section contains the clinical notes associated to the Encounter. Date/Time Encounter Note(s) Provider Source Jan 24, 2024 02:12 PM NURSING NOTE: LOCAL TITLE: [facility] RN CARE COORDINATION NOTE STANDARD TITLE: NURSING NOTE DATE OF NOTE: JAN 24, 2024@14:12 ENTRY DATE: JAN 24, 2024@14:13:11 AUTHOR: LAUREN ROBERT EXP COSIGNER: URGENCY: STATUS: COMPLETED Clinical services provided by Lauren Robert, Nurse Event Set Up Specialist via [employer] from the [facility] to the [place]'s remote site located in the [facility]. Clinical Service Provided: Care Coordination Service Delivery Method: Telephone Length of Service: 5 minutes Provisional Diagnosis (Per chart): Attention-Deficit Hyperactivity Disorder, unspecified Type 's ID was verified by full name and date of ASSESSMENT: [employer] Ticketer contacted to offer mental health medication management through the [facility] ([facility]). [place] reports they are agreeable to care with the [facility] at this time. [place] is currently VVC capable. VVC test call offered and declined by the [place]. Telephone number and email address confirmed: E-mail: [email or web address] did not report or give indications of being in acute distress or crisis that would suggest the need for additional same-day intervention. EDUCATION PROVIDED: Confirmed that the [place] has the following information: Veterans Crisis Line - 988 press 1 at prompt or 911 for any medical or mental health emergencies. PLAN: [place] agrees to meet with [facility] prescriber. CWM team to forward existing psychiatry consult to [facility] Psychiatry Outpt IFC CT. CWM crew scheduler will contact [place] to schedule [facility] appointment with [facility] prescriber. [facility] number provided if questions or concerns arise [place] verbalized understanding and agreement to plan. /maia/ LAUREN ROBERT, RN, BSN [facility] RN Mental Health Event Set Up Specialist Signed: 01/24/2024 14:19 LAUREN ROBERT [place] [facility]
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
--- OUTSIDE RECORDS SUMMARY | 2024-07-01 13:34 | XMS_ITS | Clinical Summary ---
Author Organization [facility] Address [address] [place] [address] Care Team Providers Care Plant Scientist Name Role Phone Unavailable Primary Care Provider Unavailabl e Social History Tobacco Use Types Packs/Day Years Used Date Smoking Tobacco: Never Assessed Sex and Gender Information Value Date Recorded Sex Assigned at Not on file Gender Identity Not on file Sexual Orientation Not on file Plan of Treatment Not on file
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
--- OUTSIDE RECORDS SUMMARY | 2024-07-01 13:35 | XMS_ITS | Encounter Summary ---
Author Name [facility] [place] [facility] [place] Address [address] [place] [address] Care Team Providers Care Climatology Professor Name Role Phone MEHUL ZIMMERMAN Primary Care [...] SCRIPTS PRESCRIPT ION July 11, 2006 TRRX [id number] MCKYA,CHR ISTOPHER PATIENT EXPRESS SCRIPTS TRICA RE DODA* Feb 20, 2017 DODA [id number] [phone] MCKAY,CHR ISTOPHER PATIENT [facility] 2017 SELEC T Feb 20, 2017 (WNR) SELECT [id number] [phone] MCKAY,CHR ISTOPHER PATIENT [facility] 2024 SELEC T Feb 21, 2024 [id number] MCKAY,CHR ISTOPHER PATIENT [facility] (WNR) STAND ELI July 11, 2006 [facility] [id number] [phone] MCKAY,CHR ISTOPHER PATIENT Selected Encounter This section includes the information on record at [place] for the Encounter. Date/Time Encounter Type Encounter Description Reason Provider Source Sep 28, 2023 03:30 PM OFFICE O/P EST MOD 30 MIN PRIMARY CARE/MEDICINE ICD-10-CM I10 Essential (primary) hypertension MEHUL ZIMMERMAN Marisabel Encounter Template Text not used by [place] Assessments - Encounter Diagnoses This section includes the primary and secondary diagnoses documented for the Encounter. Date/Time Primary/Secondary Diagnosis Diagnosis Name Provider Source Oct 09, 2023 06:15 AM PRIMARY Essential (primary) hypertension MEHUL ZIMMERMAN [place] Oct 09, 2023 06:15 AM SECONDARY Depression, unspecified MEHUL ZIMMERMAN [place] Oct 09, 2023 06:15 AM SECONDARY Encounter for immunization CT NAJERA [place] Oct 09, 2023 06:15 AM SECONDARY Gastro-esophageal reflux disease without esophagitis MEHUL ZIMMERMAN [place] Oct 09, 2023 06:15 AM SECONDARY Hyperlipidemia, unspecified MEHUL ZIMMERMAN [place] Oct 09, 2023 06:15 AM SECONDARY Lumbago with sciatica, left side MEHUL ZIMMERMAN [place] Oct 09, 2023 06:15 AM SECONDARY Post-traumatic stress disorder, chronic MEHUL ZIMMERMAN [place] Oct 09, 2023 06:15 AM SECONDARY Segmental and somatic dysfunction of lumbar region MEHUL ZIMMERMAN [place] Oct 09, 2023 06:15 AM SECONDARY Segmental and somatic dysfunction of sacral region MEHUL ZIMMERMAN [place] Oct 09, 2023 06:15 AM SECONDARY Sleep apnea, unspecified MEHUL ZIMMERMAN [place] Oct 09, 2023 06:15 AM SECONDARY Vertebrogenic low back pain MEHUL ZIMMERMAN [place] Oct 09, 2023 06:15 AM SECONDARY Vitamin D deficiency, unspecified MEHUL ZIMMERMAN [place] Plan of Treatment: Future Appointments (+ 6 months) and Future Tests (+/- 45 days) The Plan of Treatment section includes future care activities for the patient from all [place] treatmentfacilities. This section includes future appointments and future orders which are active, pending or scheduled. Future Appointments This section includes appointments that were scheduled to occur 6 months from the date of the Encounter, up to a maximum of 20 appointments. The data comes from all [place] treatment facilities. Appointment Date/Time Appointment Type Appointme nt Facility Name Oct 03, 2023 10:00 AM AMBULATORY - PSYCHIATRY [facility] Oct 04, 2023 02:30 PM AMBULATORY - NONE [facility] [place] [facility] Oct 09, 2023 10:00 AM AMBULATORY - NONE [facility] [place] [facility] Mar 01, 2024 04:00 PM AMBULATORY - [facility]IAT[facility] [place] [facility] Mar 01, 2024 04:00 PM AMBULATORY - PS[place]CHIATRY [place] [facility] Active, Pending, and Scheduled Orders This section includes a listing of several types of active, pending, and scheduled orders, including clinic medications orders, diagnostic test orders, procedure orders and consult orders; where the start date of the order is 45 days before the date of the Encounter or 45 days after the date of theEncounter. The data comes from all [place] treatment facilities. Test Date/Time Test Type Test Details Facility Name Sep 28, 2023 12:00 AM Laboratory - Chemi stry Order MAGNESIUM BLOOD (SST-SERUM) [facility] Sep 28, 2023 12:00 AM Laboratory - Chemi stry Order VITAMIN D (25-OH) BLOOD (SST-SERUM) [facility] Sep 28, 2023 12:00 AM Laboratory - Chemi stry Order VITAMIN B12 BLOOD (SST-SERUM) [facility] Sep 28, 2023 12:00 AM Laboratory - Chemi stry Order CBC AND DIFF (AUTO) BLOOD (LAV-BLOOD) [facility] Sep 28, 2023 12:00 AM Laboratory - Chemi stry Order URINALYSIS URINE [facility] Sep 28, 2023 12:00 AM Laboratory - Chemi stry Order MICROALBUMIN CREATININE RATIO PANEL URINE (RANDOM) [facility] Sep 28, 2023 12:00 AM Laboratory - Chemi stry Order LIPID PANEL, NON FASTING BLOOD (SST-SERUM) [facility] Sep 28, 2023 12:00 AM Laboratory - Chemi stry Order LIVER FUNCTION BLOOD (SST-SERUM) [facility] Sep 28, 2023 12:00 AM Laboratory - Chemi stry Order BASIC METABOLIC PANEL (non-fasting) BLOOD (SST-SERUM) [facility] Sep 28, 2023 12:00 AM Laboratory - Chemi stry Order TSH BLOOD (SST-SERUM) [facility] Sep 28, 2023 12:00 AM Laboratory - Chemi stry Order HEMOGLOBIN A1C PANEL BLOOD (LAV-BLOOD) [facility] [place] Immunizations: All administered on the encounter date This section contains immunizations associated to the Encounter. Immunization Series Date Issued Administered By Site Reaction Lot Number CVX Code Drug Compliance Clerk Comment(s) Source TDAP Sep 28, 2023 CT NAJERA RIGHT [place] ID [id number] [address] [place] [facility] IE Social History: Smoking Status (Most current) and [...] place. Date/Time Current Smoking Status Comment Facil ity Sep 28, 2023 03:30 PM VA-TOBACCO NEVER USED [place] Tobacco Use History This section includes a history of the smoking, or tobacco-related health factors, that were collected on or before the date of the Encounter. The data comes from the [facility] where the Encounter took place. Date/Time Smoking Status/Tobacco Use Comment F acility Oct 05, 2022 02:00 PM VA-TOBACCO FORMER USER [place] Oct 05, 2022 02:00 PM VA-TOBACCO QUIT 5 TO < 15 YRS [place] Apr 16, 2013 10:54 AM QUIT TOBACCO USE > 7 YEARS AGO NO [place] Apr 02, 2012 01:46 PM QUIT TOBACCO USE 1-7 YEARS AGO [place] Encounter Notes: All associated encounter notes This section contains the clinical notes associated to the Encounter. Date/Time Encounter Note(s) Provider Source Apr 23, 2024 06:07 PM ADDENDUM: LOCAL TITLE: Addendum STANDARD TITLE: ADDENDUM DATE OF NOTE: APR 23, 2024@18:07:30 ENTRY DATE: APR 23, 2024@18:07:32 AUTHOR: ERICA SLADE EXP COSIGNER: URGENCY: STATUS: COMPLETED Please see labs of 04/18/24. Liver function tests are abnormal and were normal in 2022. Lab result letter sent to the asking him to follow up with you. /maia/ Erica Slade PA-C PHYSICIAN COMPUTER TECHNOLOGY TRAINER, [facility] Signed: 04/23/2024 18:08 Receipt Acknowledged By: 04/24/2024 09:18 /es/ NICLOAS APONTE REGISTERED NURSE 04/28/2024 18:02 /es/ MEHUL ZIMMERMAN NP NURSE PRACTITIONER --- Original Document --- 09/28/23 NURSE PRACTITIONER OUTPATIENT NOTE: PRIMARY CARE VISIT OSCAR MEHUL MCKAY, is a 43 yo WHITE MALE [place] who [facility] at the [place] [facility]. TYPE OF VISIT: Face to face 43-year-old male with chronic back pain secondary to a injury, HTN, GERD, and PTSD presented to the outpatient clinic in follow-up. He was last seen here in the clinic in September 2022. Today he complains of lower back pain with left-sided sciatica. Symptoms have been ongoing for several months. Pain waxes and wanes. He takes NSAIDs for modest relief. He reports snoring with witnessed apnea and daytime fatigue. He previously had a PSG referral but failed to picker feeder the equipment. He has stopped taking all of his medications since last year including lisinopril, cyclobenzaprine, and famotidine. Labs from September 2022 were reviewed including elevated triglycerides at 224 and low HDL at 22. All medications were reconciled during this visit although the patient has stopped taking them. HEALTHCARE PROVIDERS: PCP: [place] Dentist: [place]. Also goes to a dentist in [place] [facility] Massage: Kandi OCAMPO Social Hx: The lives with his girlfriend. No nicotine. He drinks 2 beers/day. He vapes marijuana daily. 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 He walks daily varying distances for exercise. HISTORY: PERIOD OF SERVICE - [employer] FROM Feb TO June COMBAT SERVICE INDICATED: No MEDICAL HISTORY Active Problem Hyperlipidemia ([facility] [id number]) E78.5 06/15/2023 FABIAN HORNER Vitamin D Deficiency ([facility] [id number]) 06/15/2023 FABIAN HORNER Erythrocytosis D75.1 06/15/2023 FABIAN HORNER GERD - Gastro-Esophageal Reflux Dis 06/15/2023 FABIAN HORNER Sleep apnea G47.30 06/15/2023 FABIAN HORNER Erectile dysfunction N52.9 06/15/2023 FABIAN HORNER Exposure to potentially hazardous s 10/10/2022 EUGENE HERNANDEZ Low back pain M54.50 10/05/2022 EUGENE HERNANDEZ HTN-Hypertension ([facility] [id number]) I10 10/05/2022 EUGENE HERNANDEZ Lumbosacral strain M54.51 10/05/2022 EUGENE HERNANDEZ Somatic dysfunction of lumbar regio 10/05/2022 EUGENE HERNANDEZ Somatic dysfunction of sacral regio 10/05/2022 EUGENE HERNANDEZ Multiple joint pain 719.49 04/24/2013 MYKEL SPARKS Benign hypertension 401.1 04/16/2013 MYKEL SPARKS Pain of left thigh ([place] [address] 10/05/2022 EUGENE HERNANDEZ PTSD 309.81 04/02/2012 JULIETA BINGHAM Depressive Disorder NOS 311. 04/02/2012 JULIETA BINGHAM VITAL SIGNS: Temperature 97.5 F [36.4 C] (10/05/2022 14:21) Blood Pressure 152/92 (10/05/2022 14:21) Pulse 70 (10/05/2022 14:21) Respiration 18 (10/05/2022 14:21) Pain 7 (10/05/2022 14:21) BMI BMI: 35.3 Weight 267 lb [121.11 kg] (10/05/2022 14:21) Pulse Oximetry 98% (10/05/2022 14:21) ASSISTIVE DEVICES: None REVIEW OF SYSTEMS: CONSTITUTIONAL: No fevers, chills, weight loss/gain ENT: No sore throat, sneezing, congestion, rhinorrhea, anosmia, or ageusia. CARDIOVASCULAR: No chest pain, palpitations, or increased pedal edema RESPIRATORY: No SOB, cough, sputum, wheeze. GASTROINTESTINAL: Denies abd pain, N/V/D. No melena or hematochezia. No tenesmus or constipation. GENITOURINARY: No burning micturition. No urinary frequency or urgency. No nocturia. MUSCULOSKELETAL: No myalgias or arthralgias. PSYCHIATRIC: No new anxiety or depression. No sleep disturbance. NEUROLOGIC: No headaches, dizziness, numbness or tingling in the extremities, or unilateral weakness. EXAMINATION General: Well-appearing in no obvious distress. Mental Status: Alert and oriented x4. Head: Normocephalic. Eyes: PERRLA. EOMI. Anicteric sclerae. ENT: Moist oral mucosa. Posterior pharynx unremarkable Neck: Supple. No JVD. No thyromegaly. No LAD. No bruit. Lungs: CTA. Normal chest excursion. Eupneic respirations. CV: Heart tones S1, S2. RRR. No M/G/R. No peripheral edema GI: Obese abdomen is soft and nontender. No HSM or mass. : No CVA tenderness. Ext: No cyanosis or clubbing. No gross deformities. Neuro: CN II through XII grossly intact. Normal speech. Normal gait. Integument: Skin warm and dry. No concerning lesions or rashes. Psych: Normal mood and affect. Normal judgment. ALLERGIES: ========= SULFA DRUGS >> HEALTH MAINTENANCE PREVENTIVE MEDICINE GOALS Info Only: [facility] Video Connect Capable DUE NOW Advance Directive Screen MH AD DUE NOW Medication Reconciliation DUE NOW HTN Assess for Elevated BP>=140/90 DUE NOW (Optional) Whole Health Documentation DUE NOW ASSESSMENT/PLAN: Active problems - Computerized Problem List is the source for the followin. Hyperlipidemia ([facility] [id number]): Agrees to recheck lipid panel today. Suspect he should be on statin therapy given previous triglycerides of 224. 2. Vitamin D Deficiency ([facility] [id number]): Levels unknown. Check today. 4. GERD - Gastro-Esophageal Reflux Disease ([facility] [id number]): He self DC'd famotidine due to poor results. Agrees to a trial of omeprazole. 5. Sleep apnea: Untreated. Did not attend appointment to picker feeder equipment for home PSG. Will reorder today. 9. HTN-Hypertension ([facility] [id number]): Blood pressure mildly above target today at 142/80 despite several measurements. Agrees to resumption of lisinopril 10 mg daily. Check BMP. 8. Low back pain 10. Lumbosacral strain 11. Somatic dysfunction of lumbar region 12. Somatic dysfunction of sacral region: Longstanding injury resulting in chronic back pain with left-sided sciatica. Agrees to physical therapy referral. Continue NSAIDs. 16. PTSD: 17. Depressive Disorder NOS: referral. FOLLOW UP: RTC Below & sooner PRN UPCOMING APPOINTMENTS: No data available 45 minutes spent in patient evaluation, data review, and patient education. All medications were reconciled during this visit. No barriers; Patient understands and agrees to current treatment plan. If pt has any questions, concerns, or changes in current health status he/she will call or come in to the [facility]. Medication Reconciliation: Outpatient: Has the patient been taking medications as documented in the EMLR? YES: The patient has been taking medications as documented in the EMLR. Essential Medication List for Review used to complete this medication reconciliation. INCLUDED IN THIS LIST: Alphabetical list of active outpatient prescriptions dispensed from this [facility] (local) and dispensed from another [place] or [facility] facility (remote) as well as [...] with a VA or non-VA provider. /maia/ MEHUL ZIMMERMAN NP NURSE PRACTITIONER Signed: 10/09/2023 06:14 ERICA SLADE Sep 28, 2023 04:31 PM PRIMARY CARE NURSE PRACTITIONER OUTPATIENT NOTE: LOCAL TITLE: NURSE PRACTITIONER OUTPATIENT NOTE STANDARD TITLE: PRIMARY CARE NURSE PRACTITIONER OUTPATIENT NOTE DATE OF NOTE: SEP 28, 2023@16:31 ENTRY DATE: SEP 28, 2023@16:31:18 AUTHOR: MEHUL ZIMMERMAN EXP COSIGNER: URGENCY: STATUS: COMPLETED NURSE PRACTITIONER OUTPATIENT NOTE Has ADDENDA PRIMARY CARE VISIT OSCAR MEHUL MCKAY, is a 43 yo WHITE MALE [place] who [place] at the [place] [facility]. TYPE OF VISIT: Face to face 43-year-old male with chronic back pain secondary to a injury, HTN, GERD, and PTSD presented to the outpatient clinic in follow-up. He was last seen here in the clinic in September 2022. Today he complains of lower back pain with left-sided sciatica. Symptoms have been ongoing for several months. Pain waxes and wanes. He takes NSAIDs for modest relief. He reports snoring with witnessed apnea and daytime fatigue. He previously had a PSG referral but failed to picker feeder the equipment. He has stopped taking all of his medications since last year including lisinopril, cyclobenzaprine, and famotidine. Labs from September 2022 were reviewed including elevated triglycerides at 224 and low HDL at 22. All medications were reconciled during this visit although the patient has stopped taking them. HEALTHCARE PROVIDERS: [place]CP: [place]ist: [place] Also goes to a dentist in [place] [facility] Massage: DAMARIS, Kandi Guardado Social Hx: The lives with his girlfriend. No nicotine. He drinks 2 beers/day. He vapes marijuana daily. 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 He walks daily varying distances for exercise. HISTORY: PERIOD OF SERVICE - [employer] FROM Feb TO June COMBAT SERVICE INDICATED: No MEDICAL HISTORY Active Problem Hyperlipidemia ([facility] [id number]) E78.5 06/15/2023 FABIAN HORNER Vitamin D Deficiency ([facility] [id number]) 06/15/2023 FABIAN HORNER Erythrocytosis D75.1 06/15/2023 FABIAN HORNER GERD - Gastro-Esophageal Reflux Dis 06/15/2023 FABIAN HORNER Sleep apnea G47.30 06/15/2023 FABIAN HORNER Erectile dysfunction N52.9 06/15/2023 FABIAN HORNER Exposure to potentially hazardous s 10/10/2022 EUGENE HERNANDEZ Low back pain M54.50 10/05/2022 EUGENE HERNANDEZ HTN-Hypertension ([facility] [id number]) I10 10/05/2022 EUGENE HERNANDEZ Lumbosacral strain M54.51 10/05/2022 EUGENE HERNANDEZ Somatic dysfunction of lumbar regio 10/05/2022 EUGENE HERNANDEZ Somatic dysfunction of sacral regio 10/05/2022 EUGENE HERNANDEZ Multiple joint pain 719.49 04/24/2013 MYKEL SPARKS Benign hypertension 401.1 04/16/2013 MYKEL SPARKS Pain of left thigh ([place] [address] 10/05/2022 EUGENE HERNANDEZ PTSD 309.81 04/02/2012 JULIETA BINGHAM Depressive Disorder NOS 311. 04/02/2012 JULIETA BINGHAM VITAL SIGNS: Temperature 97.5 F [36.4 C] (10/05/2022 14:21) Blood Pressure 152/92 (10/05/2022 14:21) Pulse 70 (10/05/2022 14:21) Respiration 18 (10/05/2022 14:21) Pain 7 (10/05/2022 14:21) BMI BMI: 35.3 Weight 267 lb [121.11 kg] (10/05/2022 14:21) Pulse Oximetry 98% (10/05/2022 14:21) ASSISTIVE DEVICES: None REVIEW OF SYSTEMS: CONSTITUTIONAL: No fevers, chills, weight loss/gain ENT: No sore throat, sneezing, congestion, rhinorrhea, anosmia, or ageusia. CARDIOVASCULAR: No chest pain, palpitations, or increased pedal edema RESPIRATORY: No SOB, cough, sputum, wheeze. GASTROINTESTINAL: Denies abd pain, N/V/D. No melena or hematochezia. No tenesmus or constipation. GENITOURINARY: No burning micturition. No urinary frequency or urgency. No nocturia. MUSCULOSKELETAL: No myalgias or arthralgias. PSYCHIATRIC: No new anxiety or depression. No sleep disturbance. NEUROLOGIC: No headaches, dizziness, numbness or tingling in the extremities, or unilateral weakness. EXAMINATION General: Well-appearing [place] in no obvious distress. Mental Status: Alert and oriented x4. Head: Normocephalic. Eyes: PERRLA. EOMI. Anicteric sclerae. ENT: Moist oral mucosa. Posterior pharynx unremarkable Neck: Supple. No JVD. No thyromegaly. No LAD. No bruit. Lungs: CTA. Normal chest excursion. Eupneic respirations. CV: Heart tones S1, S2. RRR. No M/G/R. No peripheral edema GI: Obese abdomen is soft and nontender. No HSM or mass. : No CVA tenderness. Ext: No cyanosis or clubbing. No gross deformities. Neuro: CN II through XII grossly intact. Normal speech. Normal gait. Integument: Skin warm and dry. No concerning lesions or rashes. Psych: Normal mood and affect. Normal judgment. ALLERGIES: ========= SULFA DRUGS >> HEALTH MAINTENANCE PREVENTIVE MEDICINE GOALS Info Only: [employer] Video Connect Capable DUE NOW Advance Directive Screen MH AD DUE NOW Medication Reconciliation DUE NOW HTN Assess for Elevated BP>=140/90 DUE NOW (Optional) Whole Health Documentation DUE NOW ASSESSMENT/PLAN: Active problems - Computerized Problem List is the source for the followin. Hyperlipidemia ([facility] [id number]): Agrees to recheck lipid panel today. Suspect he should be on statin therapy given previous triglycerides of 224. 2. Vitamin D Deficiency ([facility] [id number]): Levels unknown. Check today. 4. GERD - Gastro-Esophageal Reflux Disease ([facility] [id number]): He self DC'd famotidine due to poor results. Agrees to a trial of omeprazole. 5. Sleep apnea: Untreated. Did not attend appointment to picker feeder equipment for home PSG. Will reorder today. 9. HTN-Hypertension ([facility] [id number]): Blood pressure mildly above target today at 142/80 despite several measurements. Agrees to resumption of lisinopril 10 mg daily. Check BMP. 8. Low back pain 10. Lumbosacral strain 11. Somatic dysfunction of lumbar region 12. Somatic dysfunction of sacral region: Longstanding injury resulting in chronic back pain with left-sided sciatica. Agrees to physical therapy referral. Continue NSAIDs. 16. PTSD: 17. Depressive Disorder NOS: referral. FOLLOW UP: RTC Below & sooner PRN UPCOMING APPOINTMENTS: No data available 45 minutes spent in patient evaluation, data review, and patient education. All medications were reconciled during this visit. No barriers; Patient understands and agrees to current treatment plan. If pt has any questions, concerns, or changes in current health status he/she will call or come in to the [facility]. Medication Reconciliation: Outpatient: Has the patient been taking medications as documented in the EMLR? YES: The patient has been taking medications as documented in the EMLR. Essential Medication List for Review used to complete this medication reconciliation. INCLUDED IN THIS LIST: Alphabetical list of active outpatient prescriptions dispensed from this [facility] (local) and dispensed from another [place] or [facility] facility (remote) as well as [...] with a VA or non-VA provider. /maia/ MEHUL ZIMMERMAN NP NURSE PRACTITIONER Signed: 10/09/2023 06:14 04/23/2024 ADDENDUM STATUS: COMPLETED Please see labs of 04/18/24. Liver function tests are abnormal and were normal in 2022. Lab result letter sent to the asking him to follow up with you. /maia/ Erica Slade PA-C PHYSICIAN COMPUTER TECHNOLOGY TRAINER, [facility] Signed: 04/23/2024 18:08 Receipt Acknowledged By: * AWAITING SIGNATURE * NICOLAS APONTE * AWAITING SIGNATURE * MEHUL ZIMMERMAN DAVID A [place] Sep 28, 2023 03:46 PM PREVENTIVE MEDICIN E NURSING NOTE: LOCAL TITLE: CLINICAL REMINDERS/NURSING STANDARD TITLE: PREVENTIVE MEDICINE NURSING NOTE DATE OF NOTE: SEP 28, 2023@15:46 ENTRY DATE: SEP 28, 2023@15:46:51 AUTHOR: CT NAJERA EXP COSIGNER: URGENCY: STATUS: COMPLETED The was given a advanced directive to complete on his own. Suicide Screen: C-SSRS Screening [place] Suicide Severity Rating Scale (C-SSRS) screener 1. Over the past month, have you [...] went to the roof but didn't jump)? No 8. If YES, was this within the past 3 months? Response not required due to responses to other questions. BMI>30/>24.99 High Risk: At this visit, the health risks of obesity were reviewed and discussed with the [place], and the benefits of a weight management treatment program, such as [facility]! was discussed and offered to the [place]. After discussing the health risks of being overweight or obese and providing information about available weight management treatment, and offering a referral to [facility] or another weight management treatment program outside the [facility], the patient DECLINES REFERRAL to [facility] or any other weight management treatment program at this time. Depression Screening: Perform PHQ-2 A PHQ-2 screen was performed. The score was 0 which is a negative screen for depression. Over the past two weeks, how often have you been bothered by the following problems? 1. Little interest or pleasure in doing things Not at all 2. Feeling down, depressed, or hopeless Not at all Tobacco Use Screening: The patient has never used tobacco. Influenza Immunization: No influenza vaccination was received during the recent influenza season. The Med Rec will be completed by the PCP. Td / Tdap Immunization: Administered: TDAP Date Administered: Sep 28, 2023 15:30 Compliance Clerk: [employer] Lot: [id number] Exp Date: Oct 31, 2025 [facility]: [phone] Admin Route/Site: INTRAMUSCULAR/RIGHT DELTOID Dosage: 0.5mL Vaccine Information Statement(s): TDAP (TETANUS, DIPHTHERIA, PERTUSSIS) VACCINE VIS Sep 25, 2020 (SURINAMESE) Order By: Policy Administered By: Ct Najera Vaccine Information Sheet (VIS) was given to the patient/caregiver, education regarding adverse reactions was discussed, as well as barriers to learning, if any, were acknowledged. Alcohol Use Screen (AUDIT-C): Alcohol Screen: SCREEN FOR ALCOHOL (AUDIT-C) An alcohol screening test (AUDIT-C) was negative (score=3). 1. How often did you have a drink containing alcohol in the past year? Consider a drink to be a 12 ounce can or bottle of regular beer, 8 ounces of malt liquor, a 5 ounce glass of table wine, or a 1.5 ounce shot of liquor (like scotch, gin, or vodka). Two to three times per week 2. How many drinks containing alcohol did you have on a typical day when you were drinking in the past year? One or two drinks 3. How often did you have six or more drinks on one occasion in the past year? Never COVID-19 Immunization: Refused Moderna Monovalent COVID-19 vaccine Immunization: COVID-19 (MODERNA), MRNA, LNP-S, PF, 50 MCG/0.5 ML (AGES 12+ YEARS) Refusal Reason: PATIENT DECISION Patient refuses all immunization(s) in the COVID-19 group Date Documented: 09/28/23 15:55 Sexual Orientation: The patient thinks of their sexual orientation as: Straight or Heterosexual RHS Screen: RHS Screen Session Format: Face to Face Environmental Check Upon inquiry, the individual reports that the environment is safe to proceed. Informed Consent to Screen and Document The individual consents to proceed with screening. The individual consents to documentation of responses. PRIMARY SCREEN: In the past 12 months, how often did a current or former intimate partner (e.g., boyfriend, girlfriend, , , sexual partner): 1. Scream or curse at you Never 2. Insult or talk down to you Never 3. Threaten you with harm Never 4. Physically hurt you Never 5. Force or pressure you to have sexual contact against your will, or when you were unable to say no Never ?? The HITS tool (items 1-4 above) is [place] copyright protected by Isaak Villanueva MD, and the user has full rights to use it throughout the [place] system. PRIMARY SCREEN RESULT: The Primary Screen is NEGATIVE. The individual answered never to all forms of IPV above (i.e., answered never to all 5 items) The individual accepts education and/or resources: Yes - Offered verbal universal education about IPV EDUCATION: The individual indicated readiness to learn. Education offered during this session as noted above. The individual indicated understanding by asking relevant questions and making appropriate comments. No barriers to learning were observed or identified. /maia/ CT NAJERA LPN LICENSED PRACTICAL NURSE Signed: 09/28/2023 16:13 CT [address] [facility]
--- OUTSIDE RECORDS SUMMARY | 2024-07-01 13:35 | XMS_ITS ---
[facility] Name [facility] Unknown History of Medication Use Medication Directions Dispensed Refills Start Date End Date Stat us amoxicillinTake 1 ta blet (oral) every 12 hours for 10 [id number] 02/22/2023 a ctive Problems Problem Status Onset Date Problem Type Date of Resoluti on Source Otitis media, unspecified, bilateral active 2023-03-02 ProblemAct [facility] Care Team Organization Name Specialty Phone Email Start Date End Da te [facility] NO PROVIDER Primary Care 03/12/2023 [facility] NO PROVIDER Primary Care 03/12/2023 [facility] 024 03/02/2023 [facility] 024
--- OUTSIDE RECORDS SUMMARY | 2024-07-01 13:35 | XMS_ITS | Continuity of Care Document ---
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 Reporting Lab: [address] [address] Performing Lab: [address] [address] [facility] LIVER FUNCTION PROTEIN [MASS/VOLU ME] IN SERUM OR PLASMA 7.3 g/dL 6.0 - 8.3 04/18 Specimen Type: SERUM No comment entered. Ordering Provider: GAEL CAMP Report Released Date/Time: Mar 01, 2024 05:03 PM Reporting Lab: [place] [facility] [facility] [address] [address] Performing Lab: [facility] [place] [facility] [address] [address] [facility] LIVER FUNCTION ALBUMIN [MASS/VOLU ME] IN SERUM OR PLASMA 4.2 g/dL 3.5 - 5.0 04/18 Specimen Type: SERUM No comment entered. Ordering Provider: GAEL CAMP Report Released Date/Time: Mar 01, 2024 05:03 PM Reporting Lab: [place] [facility] [place] [facility] [address] [address] Performing Lab: [place] [facility] [place] [facility] [address] [address] [facility] LIVER FUNCTION ALKALINE PHOSPHATAS E [ENZYMATIC ACTIVITY/V OLUME] IN SERUM OR PLASMA 87 U/L 40 - 150 04/18 Specimen Type: SERUM No comment entered. Ordering Provider: GAEL CAMP Report Released Date/Time: Mar 01, 2024 05:03 PM Reporting Lab: [place] [facility] [facility] [address] [address] Performing Lab: [place] [facility] [facility] [address] [address] [facility] L[facility] FUNCTION ASPARTATE AMINOTRANS FERASE [ENZYMATIC ACTIVITY/V OLUME] IN SERUM OR PLASMA 47 U/L 5 - 34 04/18 H Specimen Type: SERUM No comment entered. Ordering Provider: GAEL CAMP Report Released Date/Time: Mar 01, 2024 05:03 PM Reporting Lab: [place] [facility] [facility] [address] [address] Performing Lab: [place] [facility] [facility] [address] [address] [facility] LIVER FUNCTION ALANINE AMINOTRANS FERASE [ENZYMATIC ACTIVITY/V OLUME] IN SERUM OR PLASMA 87 U/L 04/18 H Specimen Type: SERUM No comment entered. Ordering Provider: GAEL CAMP Report Released Date/Time: Mar 01, 2024 05:03 PM Reporting Lab: [facility] [place] [facility] [address] [address] Performing Lab: [facility] [place] [facility] [address] [address] [place] [facility] [facility] LIVER FUNCTION BILIRUBIN. TOTAL [MASS/VOLU ME] IN SERUM OR PLASMA 0.8 mg/dL 0.2 - 1.2 04/18 Specimen Type: SERUM No comment entered. Ordering Provider: GAEL CAMP Report Released Date/Time: Mar 01, 2024 05:03 PM Reporting Lab: [place] [facility] [facility] [address] [address] Performing Lab: [place] [facility] [facility] [address] [address] [facility] LIPID PANEL, NON FASTING CHOLESTERO L [MASS/VOLU ME] IN SERUM OR PLASMA 170 mg/dL 04/18 Specimen Type: SERUM No comment entered. Ordering Provider: GAEL CAMP Report Released Date/Time: Mar 01, 2024 05:03 PM Reporting Lab: [place] [facility] [facility] [address] [address] Performing Lab: [facility] [place] [facility] [address] [address] [facility] LIP[facility] PANEL, NON FASTING TRIGLYCERI DE [MASS/VOLU ME] IN SERUM OR PLASMA 93 mg/dL 0 - 150 04/18 Specimen Type: SERUM No comment entered. Ordering Provider: GAEL CAMP Report Released Date/Time: Mar 01, 2024 05:03 PM Reporting Lab: [facility] [place] [facility] [address] [address] Performing Lab: [facility] [place] [facility] [address] [address] [place] [facility] LIPID PANEL, NON FASTING CHOLESTERO L IN LDL [MASS/VOLU ME] IN SERUM OR PLASMA BY CALCULATIO N 119 mg/dL 0 - 129 04/18 Specimen Type: SERUM No comment entered. Ordering Provider: GAEL CAMP Report Released Date/Time: Mar 01, 2024 05:03 PM Reporting Lab: [place] [facility] [place] [facility] [address] [address] Performing Lab: [facility] [address] [address] [facility] LIPID PANEL, NON FASTING CHOLESTERO L.TOTAL/CH OLESTEROL IN HDL [MASS RATIO] IN SERUM OR PLASMA 5.3 04/18 Specimen Type: SERUM No comment entered. Ordering Provider: GAEL CAMP Report Released Date/Time: Mar 01, 2024 05:03 PM Reporting Lab: [facility]US[facility] [address] [address] Performing Lab: [facility] CAMPUSUSETS [address] [address] [facility]ITALRL [facility] LIPID PANEL, NON FASTING CHOLESTERO L IN HDL [MASS/VOLU ME] IN SERUM OR PLASMA 32 mg/dL 40 - 60 04/18 L Specimen Type: SERUM No comment entered. Ordering Provider: GAEL CAMP Report Released Date/Time: Mar 01, 2024 05:03 PM Reporting Lab: [place] [address] [address] Performing Lab: [place] [address] [address] [facility] TSH THYROTROPI N [UNITS/VOL UME] IN SERUM OR PLASMA 0.93 u[IU]/mL 0.35 - 5.00 04/18 Specimen Type: SERUM No comment entered. Ordering Provider: GAEL CAMP Report Released Date/Time: Mar 01, 2024 05:03 PM Reporting Lab: [place] [address] [address] Performing Lab: [facility]USUSETS [address] [address] [facility] BASIC METABOLI C PANEL (non-fas ting) UREA NITROGEN [MASS/VOLU ME] IN SERUM OR PLASMA 13 mg/dL 7 - 25 04/18 Specimen Type: SERUM No comment entered. Ordering Provider: GAEL CAMP Report Released Date/Time: Mar 01, 2024 05:03 PM Reporting Lab: [facility]ERN [facility] CAMPUSUSE[address] [address] Performing Lab: [facility]ITALRDALE MEDICAL CENTERTRN [facility] [address] [address] [facility] BASIC METABOLI C PANEL (non-fas ting) GLUCOSE [MASS/VOLU ME] IN SERUM OR PLASMA 84 mg/dL 65 - 100 04/18 Specimen Type: SERUM No comment entered. Ordering Provider: GAEL CAMP Report Released Date/Time: Mar 01, 2024 05:03 PM Reporting Lab: [facility]ERN [facility] CAMPUSUSE[address] [address] Performing Lab: [facility]OSPITALRBEACON BEHAVIORAL HOSPITALN [facility] CAMPUSUSE[address] [address] [facility] BASIC METABOLI C PANEL (non-fas ting) SODIUM [MOLES/VOL UME] IN SERUM OR PLASMA 138 mmol/L 135 - 145 04/18 Specimen Type: SERUM No comment entered. Ordering Provider: GAEL CAMP Report Released Date/Time: Mar 01, 2024 05:03 PM Reporting Lab: [facility]ITALRDALE MEDICAL CENTERTRN [facility]AMPUSUSE[address] [address] Performing Lab: [facility]ITALRDALE MED[facility] CENTERTRN [facility]AMPUSUSE[address] [address] [facility] BASIC METABOLI C PANEL (non-fas ting) POTASSIUM [MOLES/VOL UME] IN SERUM OR PLASMA 4.1 mmol/L 3.5 - 5.0 04/18 Specimen Type: SERUM No comment entered. Ordering Provider: GAEL CAMP Report Released Date/Time: Mar 01, 2024 05:03 PM Reporting Lab: [facility]ERN [facility] [address] [address] Performing Lab: [facility]ITALRL [facility] [place] [facility] [address] [address] [facility]ITALRL [facility]N [facility] BASIC METABOLI C PANEL (non-fas ting) CHLORIDE [MOLES/VOL UME] IN SERUM OR PLASMA 104 mmol/L 100 - 110 04/18 Specimen Type: SERUM No comment entered. Ordering Provider: GAEL CAMP Report Released Date/Time: Mar 01, 2024 05:03 PM Reporting Lab: [facility]ITALRL W[facility]N [facility] CAMPUSUSETS [address] [address] Performing Lab: [facility]ITALRDALE MEDICAL CENTERTRN [facility] CAMPUSUSE[address] [address] [facility]ITALRDALE MEDICAL CENTERTRN [facility] BASIC METABOLI C PANEL (non-fas ting) CARBON DIOXIDE, TOTAL [MOLES/VOL UME] IN SERUM OR PLASMA 25 meq/L 20 - 30 04/18 Specimen Type: SERUM No comment entered. Ordering Provider: GAEL CAMP Report Released Date/Time: Mar 01, 2024 05:03 PM Reporting Lab: [facility]ITALRDALE MEDICAL CENTERTRN [facility]AMPUSUSE[address] [address] Performing Lab: [facility]OSPITALRL TRN [facility] CAMPUSUSE[address] [address] [facility] BASIC METABOLI C PANEL (non-fas ting) CALCIUM [MASS/VOLU ME] IN SERUM OR PLASMA 9.2 mg/dL 8.5 - 10.2 04/18 Specimen Type: SERUM No comment entered. Ordering Provider: GAEL CAMP Report Released Date/Time: Mar 01, 2024 05:03 PM Reporting Lab: [facility]OSPITALRL TRN [facility] CAMPUSUSETS [address] [address] Performing Lab: [facility]OSPITALRL WSTRN [facility]AMPUSUSE[address] [address] [facility]OSPITALRBEACON BEHAVIORAL HOSPITALN [facility] BASIC METABOLI C PANEL (non-fas ting) CREATININE [MASS/VOLU ME] IN SERUM OR PLASMA 1.24 mg/dL 0.50 - 1.40 04/18 Specimen Type: SERUM No comment entered. Ordering Provider: GAEL CAMP Report Released Date/Time: Mar 01, 2024 05:03 PM Reporting Lab: [place] [facility] [address] [address] Performing Lab: [place] [address] [address] [facility] BASIC METABOLI C PANEL (non-fas ting) GLOMERULAR FILTRATION RATE/1.73 SQ M.PREDICTE D [VOLUME RATE/AREA] IN SERUM, PLASMA OR BLOOD BY CREATININE -BASED FORMULA (CKD-EPI 2020) 74 mL/min 60 04/18 Specimen Type: SERUM No comment entered. Ordering Provider: GAEL CAMP Report Released Date/Time: Mar 01, 2024 05:03 PM Reporting Lab: [place] [address] [address] Performing Lab: [place] [address] [address] [facility]ITALRL W[facility]N [facility] BASIC METABOLI C PANEL (non-fas ting) UREA NITROGEN [MASS/VOLU ME] IN SERUM OR PLASMA 20 mg/dL 7 - 25 10/05 Specimen Type: SERUM No comment entered. Ordering Provider: REINA HERNANDEZ Report Released Date/Time: Oct 05, 2022 02:47 PM Reporting Lab: [place] [address] [address] Performing Lab: [place] [address] [address] [place] BASIC METABOLI C PANEL (non-fas ting) GLUCOSE [MASS/VOLU ME] IN SERUM OR PLASMA 73 mg/dL 65 - 100 10/05 Specimen Type: SERUM No comment entered. Ordering Provider: REINA HERNANDEZ Report Released Date/Time: Oct 05, 2022 02:47 PM Reporting Lab: [place] [address] [address] Performing Lab: [place] [address] [address] [place] BASIC METABOLI C PANEL (non-fas ting) SODIUM [MOLES/VOL UME] IN SERUM OR PLASMA 140 mmol/L 135 - 145 10/05 Specimen Type: SERUM No comment entered. Ordering Provider: REINA HERNANDEZ Report Released Date/Time: Oct 05, 2022 02:47 PM Reporting Lab: [facility]PITALRDALE MEDICAL CENTERTRN [address] [address] Performing Lab: [facility] HOSPITALRL TRN [facility]AMPUSUSE[address] [address] [place] BASIC METABOLI C PANEL (non-fas ting) POTASSIUM [MOLES/VOL UME] IN SERUM OR PLASMA 4.2 mmol/L 3.5 - 5.0 10/05 Specimen Type: SERUM No comment entered. Ordering Provider: REINA HERNANDEZ Report Released Date/Time: Oct 05, 2022 02:47 PM Reporting Lab: [facility]PITALRL TRN [facility]AMPUSUSE[address] [address] Performing Lab: [facility]ITALRDALE MEDICAL CENTERTRN [facility] CAMPUSUSE[address] [address] [place] BASIC METABOLI C PANEL (non-fas ting) CHLORIDE [MOLES/VOL UME] IN SERUM OR PLASMA 106 mmol/L 100 - 110 10/05 Specimen Type: SERUM No comment entered. Ordering Provider: REINA HERNANDEZ Report Released Date/Time: Oct 05, 2022 02:47 PM Reporting Lab: [facility]ITALRDALE MEDICAL CENTERTRN [facility] CAMPUSUSETS [address] [address] Performing Lab: [facility]ITALRDALE MEDICAL CENTERTRN [facility] CAMPUSUSE[address] [address] [place] BASIC METABOLI C PANEL (non-fas ting) CARBON DIOXIDE, TOTAL [MOLES/VOL UME] IN SERUM OR PLASMA 24 meq/L 20 - 30 10/05 Specimen Type: SERUM No comment entered. Ordering Provider: REINA HERNANDEZ Report Released Date/Time: Oct 05, 2022 02:47 PM Reporting Lab: [facility]ITALRDALE MEDICAL CENTERTRN [address] [address] Performing Lab: [facility]ERN [address] [address] [place] BASIC METABOLI C PANEL (non-fas ting) CREATININE [MASS/VOLU ME] IN SERUM OR PLASMA 1.31 mg/dL 0.50 - 1.40 10/05 Specimen Type: SERUM No comment entered. Ordering Provider: REINA HERNANDEZ Report Released Date/Time: Oct 05, 2022 02:47 PM Reporting Lab: [facility]OSPITALRBEACON BEHAVIORAL HOSPITALN [address] [address] Performing Lab: [address] [address] [place] BASIC METABOLI C PANEL (non-fas ting) GLOMERULAR FILTRATION RATE/1.73 SQ M.PREDICTE D [VOLUME RATE/AREA] IN SERUM, PLASMA OR BLOOD BY CREATININE -BASED FORMULA (CKD-EPI) 70 mL/min 60 10/05 Specimen Type: SERUM No comment entered. Ordering Provider: REINA HERNANDEZ Report Released Date/Time: Oct 05, 2022 02:47 PM Reporting Lab: [address] [address] Performing Lab: [address] [address] [place] LIPID PANEL, NON FASTING CHOLESTERO L [MASS/VOLU ME] IN SERUM OR PLASMA 188 mg/dL 10/05 Specimen Type: SERUM No comment entered. Ordering Provider: REINA HERNANDEZ Report Released Date/Time: Oct 05, 2022 02:47 PM Reporting Lab: [address] [address] Performing Lab: [address] [address] [place] LIPID PANEL, NON FASTING TRIGLYCERI DE [MASS/VOLU ME] IN SERUM OR PLASMA 224 mg/dL 0 - 150 10/05 H Specimen Type: SERUM No comment entered. Ordering Provider: REINA HERNANDEZ Report Released Date/Time: Oct 05, 2022 02:47 PM Reporting Lab: [facility]OSPITALRL TRN [facility]AMPUSUSETS [facility] [address] [address] Performing Lab: [facility]OSPITALRL TRN [facility] CAMPUSUSE[address] [address] [place] LIPID PANEL, NON FASTING CHOLESTERO L IN LDL [MASS/VOLU ME] IN SERUM OR PLASMA BY CALCJOJO N 121 mg/dL 0 - 129 10/05 Specimen Type: SERUM No comment entered. Ordering Provider: REINA HERNANDEZ Report Released Date/Time: Oct 05, 2022 02:47 PM Reporting Lab: [facility]OSPITALRL TRN [address] [address] Performing Lab: [facility]OSPITALRL TRN [facility]AMPUSUSE[address] [address] [place] LIPID PANEL, NON FASTING CHOLESTERO L.TOTAL/CH OLESTEROL IN HDL [MASS RATIO] IN SERUM OR PLASMA 8.5 10/05 Specimen Type: SERUM No comment entered. Ordering Provider: REINA HERNANDEZ Report Released Date/Time: Oct 05, 2022 02:47 PM Reporting Lab: [facility]ITALRL TRN [address] [address] Performing Lab: [facility]PITALRL TRN [facility]AMPUSUSETS [address] [address] [place] LIPID PANEL, NON FASTING CHOLESTERO L IN HDL [MASS/VOLU ME] IN SERUM OR PLASMA 22 mg/dL 40 - 60 10/05 L Specimen Type: SERUM No comment entered. Ordering Provider: REINA HERNANDEZ Report Released Date/Time: Oct 05, 2022 02:47 PM Reporting Lab: [facility]ITALRDALE MEDICAL CENTERTRN [address] [address] Performing Lab: [facility]ITALRDALE MEDICAL CENTERTRN [facility]USUSE[address] [address] [place] LIVER FUNCTION PROTEIN [MASS/VOLU ME] IN SERUM OR PLASMA 7.4 g/dL 6.0 - 8.3 10/05 Specimen Type: SERUM No comment entered. Ordering Provider: REINA HERNANDEZ Report Released Date/Time: Oct 05, 2022 02:47 PM Reporting Lab: [facility] CAMPUSUSETS [address] [address] Performing Lab: [facility]AMPUSUSETS [address] [address] [place] LIVER FUNCTION ALBUMIN [MASS/VOLU ME] IN SERUM OR PLASMA 4.3 g/dL 3.5 - 5.0 10/05 Specimen Type: SERUM No comment entered. Ordering Provider: REINA HERNANDEZ Report Released Date/Time: Oct 05, 2022 02:47 PM Reporting Lab: [facility]AMPUSUSETS [address] [address] Performing Lab: [facility] CAMPUSUSE[address] [address] [facility] LIVER FUNCTION ALKALINE PHOSPHATAS E [ENZYMATIC ACTIVITY/V OLUME] IN SERUM OR PLASMA 63 U/L 40 - 150 10/05 Specimen Type: SERUM No comment entered. Ordering Provider: REINA HERNANDEZ Report Released Date/Time: Oct 05, 2022 02:47 PM Reporting Lab: [facility]USUSETS [address] [address] Performing Lab: [facility]AMPUSUSETS [address] [address] [facility] LIVER FUNCTION ASPARTATE AMINOTRANS FERASE [ENZYMATIC ACTIVITY/V OLUME] IN SERUM OR PLASMA 29 U/L 5 - 34 10/05 Specimen Type: SERUM No comment entered. Ordering Provider: REINA HERNANDEZ Report Released Date/Time: Oct 05, 2022 02:47 PM Reporting Lab: [facility]USUSETS [address] [address] Performing Lab: [facility]AMPUSUSETS [address] [address] [facility] LIVER FUNCTION ALANINE AMINOTRANS FERASE [ENZYMATIC ACTIVITY/V OLUME] IN SERUM OR PLASMA 40 U/L 10/05 Specimen Type: SERUM No comment entered. Ordering Provider: REINA HERNANDEZ Report Released Date/Time: Oct 05, 2022 02:47 PM Reporting Lab: [address] [address] Performing Lab: [address] [address] [facility] LIVER FUNCTION BILIRUBIN. TOTAL [MASS/VOLU ME] IN SERUM OR PLASMA 1.0 mg/dL 0.2 - 1.2 10/05 Specimen Type: SERUM No comment entered. Ordering Provider: REINA HERNANDEZ Report Released Date/Time: Oct 05, 2022 02:47 PM Reporting Lab: [address] [address] Performing Lab: [address] [address] [facility] HEMOGLOB IN A1C PANEL HEMOGLOBIN A1C/HEMOGL OBIN.TOTAL IN BLOOD BY HPLC 4.8 4.0 - 5.6 10/05 Specimen Type: BLOOD Comment: Values obtained from A1C measurement s can vary. For atypical A1C assays, a reported value of 7.0 could actually be between 6.72 and 7.28 if measured by a reference method. A reported value of 9.0 could actually be between 8.73 and 9.27. Ref: http://www. ngsp.org/[place] Pdata.asp Ordering Provider: REINA HERNANDEZ S Report Released Date/Time: Oct 05, 2022 02:47 PM Reporting Lab: [address] [address] Performing Lab: [address] [address] [facility] Vital Signs Combined list of inpatient and outpatient Vital Signs from [facility] [employer] and [facility], ranging from 12 months to all on record, depending upon the facility. Vital Sign Value Date Comments Source SYSTOLIC BLOOD PRESSURE 132 04/18/2024 12:45:58 [place] DIASTOLIC BLOOD PRESSURE 96 04/18/2024 12:45:58 [place] PULSE OXIMETRY 99 04/18/2024 12:45:58 [place] PAIN 0 04/18/2024 12:45:58 [place] TEMPERATURE 98.1 04/18/2024 12:45:58 [place] PULSE 73 04/18/2024 12:45:58 [place] RESPIRATION 16 04/18/2024 12:45:58 [place] SYSTOLIC BLOOD PRESSURE 140 09/29/2023 03:35:00 [place] DIASTOLIC BLOOD PRESSURE 80 09/29/2023 03:35:00 [place] PULSE OXIMETRY 97 09/29/2023 03:35:00 [place] WEIGHT 255 09/29/2023 03:35:00 [place] BMI 34 kg/m2 09/29/2023 03:35:00 [place] PAIN 4 09/29/2023 03:35:00 [place] HEIGHT 73 09/29/2023 03:35:00 [place] TEMPERATURE 97.9 09/29/2023 03:35:00 [place] PULSE 79 09/29/2023 03:35:00 [place] RESPIRATION 17 09/29/2023 03:35:00 [place] Encounters Combined list of: 1) Encounters from [facility] of [facility] facilities going backup to the last 18 months, not all VA inpatient encounters are included; 2) Encounters from the Department of Defense facilities going backup to 280 months. Location Location Details Encounter Type Encounter Number Reason For Visit Attending Provider ADM Date DC Date Status Disposition Source [place] [place] OUTPATIENT [id number] URI DEVI Mendoza 03/22 Released with Work/Duty Limitations [place] [place] [facility] [place] OUTPATIENT [id number] neck pain for three days BELLA KEY 04/14 Released with Work/Duty Limitations [place] [place] [facility] OUTPATIENT [id number] neck JAGDISH CHAVEZ 04/15 Released with Work/Duty Limitations [place] [facility] [place] OUTPATIENT [id number] cut left finger NEERU CHAN 05/18 [place]ased w/o Limitations [place] [facility] [place] [place] OUTPATIENT [id number] BELLA Pack 06/08 [place]ased w/o Limitations [place] [place] [facility] [facility] [place] M[facility]A [facility] Adm) OUTPATIENT [id number] referra l for physica l therapy MILTON, CAYETANO 03/15 Released w/o Limitations [place] [place] M01A [facility] Adm[place] [place]Phys Therapy) OUTPATIENT [id number] LETTY MARTELL 03/28 Released w/o Limitations [place] [place]Ph [place]s [place] ) [place] [place] M01A [facility]C Adm[place] OUTPATIENT [id number] perm profile /knee/r esched ms delmy nolen EDIEMYKEL JEFFREY Jessica 04/19 Released w/o Limitations [place] [place]AM H M01A CHC Adm) [place] [place]Opto metry - Maciel) OUTPATIENT [id number] SRC, PT had traumat ic injury, OD MIRNA EASTMAN 06/05 Released w/o Limitations [place] [facility] [place]Op tometry - Maciel[place] [facility]) OUTPATIENT [id number] MYKEL CORRAL 12/16 Released w/o Limitations [place] [facility]) [place] [place] OUTPATIENT [id number] FFD, acute back pain MYKEL WOOD 12/16 Released w/o Limitations [place] [facility] [place] [place] [facility] OUTPATIENT [id number] FFD eval for back pain RACHEL ELLISON 12/17 Released with Work/Duty Limitations [place] [facility] [place] [facility] [facility] OUTPATIENT [id number] under 42, meb phys SATHISH OROZCO 12/17 [place]ased w/o Limitations [place] [place] [facility] OUTPATIENT [id number] PAB MICAH LIN 12/17 [place] Limitations [place] [place] [facility] [place] TELE CONSULT [id number] f/u from finding s by Dr Shawn Diamond y MYKEL WOOD 12/17 [place] [facility] [place] [place] OUTPATIENT [id number] f/u MFSE, MRI result/ noelle i, RAQUEL carson shoulde r RADHA Lafleur 03/23 [place] w/o Limitations [place] [facility] [place] [place]) OUTPATIENT [id number] LONG HX BILATER AL SHOULDE R PAIN FACING PAB-MELANIE L FOR ADVANCI NG CARE MYKEL WOOD 05/25 [place]o Limitations [place] [facility] [place] OUTPATIENT [id number] rom-kelton at shoulde r pain VALERIO LAWRENCE R 08/10 [place]ased w/o Limitations [place] [facility] OUTPATIENT [id number] RE-DO PART 2 PAB RACHEL ELLISON 09/17 Released with Work/Duty Limitations [place] [place] [facility] [facility] Outpatient Encounter [id number] Diagnos is: ICD-10- CM Z02.89 Encount er for other adminis trative examina tions WENDY LAYNE 01/02 [place] [facility] [place] [facility] Outpatient Encounter [id number] 03/02 [facility] En[facility] [id number] 03/20 [facility] [place] En[place] [id number] 04/17 [place] [facility] Encounter [id number] 05/17 [facility] En[facility] [id number] 05/23 [facility] [place] Outpatient Encounter [id number] 05/23 [facility]/P EST HI 40 MIN [id number] Diagnos is: ICD-10- CM M54.50 Low back pain, unspeci fied HORNER,VICT ORIA J 06/14 [place] [facility] En[facility] [id number] 06/21 [facility] En[facility] [id number] 07/11 [facility] OFF[facility] O/P EST SF 10 MIN [id number] Diagnos is: ICD-10- CM M54.50 Low back pain, unspeci fied GAUNYA,CHR ISTOPHER M 07/12 [facility] En[facility] [id number] 07/13 [facility] Encounter [id number] 07/31 [facility] [place] OFFICE O/P EST MOD 30 MIN [id number] Diagnos is: ICD-10- CM I10 Essenti al (primar y) hyperte nsion ZIMMERMAN,DA VID A 09/27 [place] [facility] OFF/OP EST JUNE X REQ PHY/QHP [id number] Diagnos is: ICD-10- CM 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 ASHLYN BELLA O 10/02 [place] [facility] Outpatient Encounter [id number] 10/10 [facility] [place] [facility] [place] [facility] Outpatient Encounter [id number] 10/16 [facility] [place] [facility] [place] [facility] Outpatient Encounter [id number] 01/15 [facility] [place] [facility] PRO PHONE CALL 5-10 MIN [id number] Diagnos is: ICD-10- CM F90.9 Attenti on-defi cit hyperac tivity disorde r, unspeci fied type ME CHRISTY TAYLOR N 01/23 [facility] [place] Outpatient Encounter [id number] 01/23 [facility] [place] [facility] OFF/OP CONSLTJ NEW/EST HI 55 [id number] Diagnos is: ICD-10- CM 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, combine d type CONRADOGAEL T 03/01 [facility] Outpatient Encounter [id number] 03/01 [facility] Out[facility] Encounter [id number] 03/01 [facility] Encounter [id number] 04/17 [facility] [place] [facility] [place] OFF/OP EST JUNE X REQ PHY/QHP [id number] Diagnos is: ICD-10- CM M25.541 Pain in joints of right hand HAYDER LARA IC K 04/18 [place] [facility] Out[facility] Encounter [id number] 04/18 [facility] Encounter [id number] 04/19 [facility] Encounter [id number] 04/22 [facility] Encounter [id number] 04/22 [facility] Encounter [id number] 04/29 [facility] OFFICE O/P EST SF 10 MIN [id number] Diagnos is: ICD-10- CM M79.643 Pain in unspeci fied hand KEMAR,BEBE TIMOTEO M 04/29 [facility] [place] [facility] EST MOD 30 [id number] Diagnos is: ICD-10- CM 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, combine d type GAEL CAMP 05/03 [facility] Out[facility] Encounter [id number] 05/03 [facility] Encounter [id number] 05/08 [facility] Encounter [id number] 06/04 [facility] Encounter [id number] 06/04 [facility] Out[facility] Encounter [id number] 06/05 [facility] Out[facility] Encounter [id number] 06/07 [facility] Procedures Combined list of: 1) Procedures from Department of Veterans Affairs facilities going back up to thelast 18 months, not all VA non-surgical procedures are included; 2) All procedures from the Department of Defense facilities. Procedure Procedure Type Code Date Perfomer Comments Sour e Psychiatric Evaluation Review of Records and Reports Psychiatric Evaluation Review of Records and Reports 32046 09/18/19 10 ZAHRA ALCARAZ [facility] Psychiatric Therapy Preparation of Psychiatric Status Report Psychiatric Therapy Preparation of Psychiatric Status Report [id number] 09/18/19 10 ZAHRA ALCARAZ [facility] Psychiatric Evaluation Comprehensive Examination Psychiatric Evaluation Comprehensive Examination 53328 09/18/19 10 ZAHRA ALCARAZ [facility] Range Of Motion Evaluation Of Extremity Range Of Motion Evaluation Of Extremity 18470 08/11/19 10 LAWRENCE LUO [facility] Patient Counseling Medical Management Individual Patient Patient Counseling Medical Management Individual Patient 82784 12/18/19 09 CHEYENNE BURKS Threshold Audiogram (Pure Tone) Threshold Audiogram (Pure Tone) 48229 12/18/19 09 CHEYENNE BURKS Visual Function Screening Visual Function Screening 81254 12/18/19 09 SATHISH OROZCO [facility] Range Of Motion Evaluation Of Extremity Range Of Motion Evaluation Of Extremity 85310 12/17/19 09 MYKEL CORRAL [facility] Spectacles Services Fitting Monofocals (Not For Aphakia) Spectacles Services Fitting Monofocals (Not For Aphakia) 34210 06/06/19 07 MIRNA EASTMAN Determination Of Refractive State Determination Of Refractive State 80024 06/06/19 07 MIRNA EASTMAN Ophthalmological New Patient Start Comprehensive Care Ophthalmological New Patient Start Comprehensive Care 04194 06/06/19 07 MIRNA EASTMAN Physical Medicine - Group Physical Therapy Se ion Physical Medicine - Group Physical Therapy Session 32322 03/28/19 06 LETTY MARTELL Phys Therapy Education Self Care Training - Per 15 Minutes Phys Therapy Education Self Care Training - Per 15 Minutes 85672 03/28/19 06 LETTY MARTELL Physical Medicine Physical Therapy Evaluation Physical Medicine Physical Therapy Evaluation 49640 04/15/19 05 JAGDISH CHAVEZ Exercises A isted Exercises For ROM Exercises Assisted Exercises For ROM 08084 04/15/19 05 JAGDISH CHAVEZ Training And Self-Care Skills Additional 15 Minutes Training And Self-Care Skills Additional 15 Minutes 19530 04/15/19 05 JAGDISH CHAVEZ Modalities Cryotherapy Cold Packs Modalities Cryotherapy Cold Packs 55094 04/15/19 05 JAGDISH CHAVEZ APPLICATION OF A MODALITY TO 1 OR MORE AREAS; HOT OR COLD PACKS 04/15/19 05 [facility] PHYS/OTH QUALIFIED HEALTH SCALE AGENT QUALIFIED,EDUCATION,T RAIN,LICENSURE/REGULA TION (WHEN APPLICABLE) EDUC SER RENDERED TO PATS IN A GRP SETTING (EG,,OBESITY, OR DIABETIC INSTRUCT) 03/03/19 05 [facility] SKIN TEST; TUBERCULOSIS, INTRADERMAL 06/07/19 07 [facility] FITTING OF SPECTACLES, EXCEPT FOR APHAKIA; MONOFOCAL 06/06/19 07 [facility] ANTHRAX VACCINE, FOR SUBCUTANEOUS OR INTRAMUSCULAR USE 06/03/19 06 [facility] SELF-CARE/HOME MANAGMENT TRAIN (EG,ACT OF DAILY LIVING (ADL) &COMPENSAT TRAIN,MEAL PREPARATION,SAFETY PROCS,AND INSTRUCT IN USE OF ASST TECHNOLOGY DEV/ADPT EQUIP) DIR ONE-ON-ONE CONT,EA 15 MINUTES 03/28/19 06 [facility] HEPATITIS B VACCINE (HEPB), ADULT DOSAGE, 3 DOSE SCHEDULE, FOR INTRAMUSCULAR USE 03/02/19 06 [facility] PSYCHIATRIC EVALUATION OF HOSPITAL RECORDS, OTHER PSYCHIATRIC REPORTS, PSYCHOMETRIC AND/OR PROJECTIVE TESTS, AND OTHER ACCUMULATED DATA FOR MEDICALDIAGNOSTIC PURPOSES 09/18/19 10 [facility] RANGE OF MOTION MEASUREMENTS AND REPORT (SEPARATE PROCEDURE); EACH EXTREMITY (EXCLUDING HAND) OR EACH TRUNK SECTION (SPINE) 08/11/19 10 [facility] EDUCATION &TRAINING, PATIENT SELF-MGT QUALIFIED, NONPHYSICIAN HEALTH SCALE AGENT USING STDIZED CURRICULUM, [id number] W THE PATIENT (COULD INCL CAREGIVER/FAMILY) EA 30 MIN; INDIVIDUAL PATIENT 12/18/19 09 [facility] VIS FUNCT SCREEN,AUTOMAT/SEMI-A UTOMAT BILAT QUANT DETERM VISUAL ACUITY,OCULAR ALIGN,COLOR VISION,PSEUDOISOCHROM AT PLATES,& FIELD VIS (MAY INC ALL/SOME SCRN DETERM FOR CONTRAST SENSITIV,VIS UND GLARE) 12/18/19 09 [facility] RANGE OF MOTION MEASUREMENTS AND REPORT (SEPARATE PROCEDURE); EACH EXTREMITY (EXCLUDING HAND) OR EACH TRUNK SECTION (SPINE) 12/17/19 09 [facility] Social History Combined list of available smoking, tobacco, and other social history from 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 Social History Type Response Date Comment [facility] e Tobacco smoking status [facility] VA-TOBACCO NEVER USED 09/28/2023 [facility] [place] History of tobacco use VA-TOBACCO FORMER USER 10/05/2022 [place] History of tobacco use QUIT TOBACCO USE > 7 YEARS AGO 04/16/2013 NO [place] History of tobacco use QUIT TOBACCO USE 1-7 YEARS AGO 04/02/2012 [place] History of tobacco use QUIT TOBACCO USE 1-7 YEARS AGO 03/21/2011 [place] History of tobacco use QUIT TOBACCO USE 1-7 YEARS AGO 11/11/2009 [place] History of tobacco use QUIT TOBACCO USE 1-7 YEARS AGO 08/27/2008 quit 2 years ago. [place] History of tobacco use QUIT TOBACCO USE 1-7 YEARS AGO [facility] [address] History of tobacco use QUIT TOBACCO USE 1-7 YEARS AGO 04/02/[facility] [address] History of tobacco use CURRENT SMOKER 07/24/2006 JONNIE This section is an empty social history section. [facility] Plan of Care List of future care activities from Department of 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 Additional future care activities may be listed in the Assessment and Plan section. Date/Time Care Activity Care Activity Detail Facili ty 07/01/2024 AMBULATORY - MEDICINE AMBULATORY - MEDICI [facility]
== END 2024-07-01 13:49 | disposition home or self-care (01) ==
LOC: HO.HOS 13:15
DX: M79.644 Pain in right finger(s) (principal); S63.616A Unspecified sprain of right little finger, initial encounter
CPT/HCPCS: 99203

== ENCOUNTER → 2024-07-01 13:19 | Outpatient (BNV) | payer OTHER, SELFPAY | PROVIDERS: Visit Provider Radiology Diagnostic Radiology | DX: M79.644 Pain in right finger(s) (principal) | CPT/HCPCS: 73140 ==

== ENCOUNTER 2024-08-16 14:44 | Outpatient (AMB) | payer OTHER, SELFPAY ==
--- NOTE | 2024-08-16 15:06 | A.OFFVIS_ITS ---
Intake Visit Reasons: OV: Rt Hand 5th digit MCP sprain DOI:April2024 Intake Note: [place] is a 44 year old right hand dominant male who presents today for a follow up for his sprain of radial collateral ligament of right small finger MCP joint s/p fall DOI: ~ end of April 2024. Patient has not attended OT. He expresses he assumed this was his OT appt. I was able to assist patient will calling OT and rescheduling a visit for 08/26/24 @ 8:30 AM. Still having stiffness and some pain. Reports he has a bump on the 5th digit MCP. Allergies Sulfacetamide Sodium Allergy (Unknown, Uncoded 08/16/24 15:11) rash HPI HPI OV: Rt Hand 5th digit MCP sprain DOI:April2024: Details: Houston is a 44 year old right hand dominant male who presents today for a follow up for his sprain of radial collateral ligament of right small finger MCP joint s/p fall DOI: ~ end of April 2024. Patient has not attended OT. He expresses he assumed this was his OT appt. I was able to assist patient will calling OT and rescheduling a visit for 08/26/24 @ 8:30 AM. Still having stiffness and some pain. Reports he has a bump on the 5th digit MCP. 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 Neuro: Normal sensation of the tips of all digits of the right hand at this time Vascular: Cap refill brisk Pain: Tenderness to palpation about the dorsal and radial aspect of the 5th MCP joint of the right hand No tenderness to palpation of the ulnar aspect No tenderness to palpation elsewhere in the right hand or 5th digit There are Good endpoints with varus and valgus testing of the MCP joint of the right small finger, but patient does report significant pain, particularly with testing of the radial collateral ligament of the right 5th MCP. ROM: Patient is able to make a closed fist and extend all digits of the right hand fully and without difficulty Skin: No lacerations or abrasions. General: No ecchymosis, erythema, or evidence of infection. Psych: Appears grossly normal Affect normal Attitude cooperative Assessment & Plan Assessment & Plan (1) Sprain of right little finger: Code(s): S63.616A - Unspecified sprain of right little finger, initial encounter Category: Medical (2) Finger pain, right: Code(s): M79.644 - Pain in right finger(s) Category: Medical (3) Mass of finger of right hand: Code(s): R22.31 - Localized swelling, mass and lump, right upper limb Category: Medical Plan 1. Sprain of radial collateral ligament of right small finger MCP joint Patient is educated about this condition Patient is educated about the typical treatment course At this time, patient is informed that there is no acute surgical intervention indicated for this injury However, since this area of pronounced swelling has remained persistent since previous evaluation, I feel it is appropriate to order further imaging to assess if this is in fact swelling or a subcutaneous mass Patient is referred to occupational therapy for range of motion and strengthening of the right hand in the setting of this injury Patient is also advised that he can carlene tape the fingers in high-risk situations to prevent the finger from wrenching and causing significant pain Patient is amenable to this plan Follow-up as needed Coding Level of Care Code Est Pt Level 3 (17197) Diagnoses Sprain of right little finger S63.616A Finger pain, right M79.644 Mass of finger of right hand R22.31
== END 2024-08-16 15:31 | disposition home or self-care (01) ==
LOC: HO.HOS 14:45
PROVIDERS: PCP Hospitalist
DX: S63.616A Unspecified sprain of right little finger, initial encounter (principal); M79.644 Pain in right finger(s); R22.31 Localized swelling, mass and lump, right upper limb
CPT/HCPCS: 99213

== ENCOUNTER → 2024-08-16 14:44 | Outpatient (BNVA) | payer OTHER, SELFPAY | PROVIDERS: PCP Hospitalist | DX: R22.31 Localized swelling, mass and lump, right upper limb (principal); M79.644 Pain in right finger(s); S63.616A Unspecified sprain of right little finger, initial encounter; X58.XXXA Exposure to other specified factors, initial encounter | CPT/HCPCS: 99212 ==

== ENCOUNTER 2024-09-06 15:49 | Outpatient (REF) | payer OTHER, SELFPAY ==
--- NOTE | ~2024-09-06 | MR_ITS ---
EXAM: MRI of the head without and with IV contrast TECHNIQUE: Multiplanar - multisequence imaging through an upper extremity, right hand, was performed without contrast. Contrast: 10 mL Gadavist INDICATION: R22.31 - Localized swelling, mass and lump OF FINGER , injured fourth and fifth MCP joints 04/16/2024 PRIOR: x-ray on July 01, 2024 FINDINGS: Ligaments: The radial collateral ligament of the fifth metacarpal phalangeal joint is grossly thickened throughout most of its course but probably attenuated 3 mm from the metacarpal joint. Muscles, tendons, pulleys: There is mild thickening and increased signal in the extensor digitorum near the enthesis on the fifth proximal phalanx. Tendons otherwise appear intact without thickening, attenuation, or bowstringing. Articular cartilage/Joint capsular structures: The sagittal band is traversed by fluid signal along the ulnar side of the fifth MCP joint. On the radial side, there is intermediate signal and hyperenhancement. There is thinning of articular cartilage in the fifth MCP joint and trace joint effusion. Bones/Marrow: There are 2 foci of hyperenhancement involving the radial side of the fifth metacarpal head and neck. MR/MR hand RT wo/w con IMPRESSION: Fifth MCP joint injury. There is a tear of the sagittal band of the fifth MCP joint on the ulnar side. There is a high-grade partial tear on the radial side. There is a tear versus high-grade partial tear of the radial collateral ligament of the fifth MCP joint. There is a grade 1 strain of the extensor digitorum tendon near the base of the fifth tarsal phalanx. There is trace joint effusion. There is minimal focal marrow hyperemia in the radial side of the head and neck of the fifth metacarpal. Electronically signed by: Justo Bailey MD 09/06/2024 05:10 PM EDT
--- OUTSIDE RECORDS SUMMARY | 2024-09-06 15:58 | XMS_ITS | Clinical Summary ---
Author Organization [facility] Address [address] [place] [address] Care Team Providers Care Outside Plant Engineer Name Role Phone Unavailable Primary Care Provider [...]
--- OUTSIDE RECORDS SUMMARY | 2024-09-06 15:58 | XMS_ITS | Encounter Summary ---
Author Organization [facility] Address [address] [place] [phone] Phone Care Team Providers Care Fire Technology Instructor Name Role Phone Unknown, Unknown Primary Care Provider Justino cabrera Pcp, Unknown Primary Care Provider Van e Pcp, Unknown Primary Care Provider Sofi Amezcua MD Primary Care Provider Van e Encounter Details Date Type Department Care Team (Late st Contact Info) Description 09/27/2017 Procedure [facility], Ct Scan - [address] [address] Social History Tobacco Use Types Packs/Day Years Used Date Smoking Tobacco: Every Day Sex and Gender Information Value Date Recorded Sex Assigned at Male 04/01/2020 2:43 PM EST Legal Sex Male 5:07 PM EDT Gender Identity Male 04/01/2020 2:43 PM EST Sexual Orientation Choose not to disclose 2017 5:21 PM EDT documented as of this encounter Plan of Treatment Not on file documented as of this encounter Visit Diagnoses Not on filedocumented in this encounter Additional Health Concerns Infection Onset Date Last Indicated Resolved Time CoV-Risk 12/30/2020 12/30/2020 01/09/2021 1:22 AM EST documented as of this encounter Care Teams Fire Technology Instructor Relationship Specialty Start Date End Date Unknown, Unknown, PCP - General 09/27/17 03/31/20 Pcp, Unknown PCP - General 04/01/20 12/29/20 Pcp, Unknown PCP - General 12/30/20 05/11/22 Sofi Carmichael MD PCP - General Internal Medicine 05/12/22 documented as of this encounter Additional Source Comments The information contained in this document represents components of the legal health record. It is not the complete legal health record.[facility]
--- OUTSIDE RECORDS SUMMARY | 2024-09-06 15:58 | XMS_ITS | Clinical Summary ---
Author Organization [facility] Address [address] [place] [address] Care Team Providers Care Veterinarian Laboratory Animal Care Name Role Phone Unavailable Primary Care Provider Unavailabl e Social History Tobacco Use Types Packs/Day Years Used Date Smoking Tobacco: Never Assessed Sex and Gender Information Value Date Recorded Sex Assigned at Not on file Gender Identity Not on file Sexual Orientation Not on file Plan of Treatment Not on file
== END 2024-09-06 15:50 | disposition home or self-care (01) ==
LOC: HO.MRI 15:49
DX: R22.31 Localized swelling, mass and lump, right upper limb (principal)
CPT/HCPCS: 73220; A9585

== ENCOUNTER → 2024-09-06 16:19 | Outpatient (BNV) | payer OTHER, SELFPAY | PROVIDERS: Visit Provider Radiology Diagnostic Radiology | DX: S63.641A Sprain of metacarpophalangeal joint of right thumb, initial encounter (principal) | CPT/HCPCS: 73220 ==

== ENCOUNTER 2024-10-01 13:59 | Outpatient (AMB) | payer OTHER, SELFPAY ==
--- NOTE | 2024-10-01 14:10 | A.OFFVIS_ITS ---
Intake Visit Reasons: O/V RT hand MRI review Intake Note: Houston 44 yr old right hand dominant male presents today to review MRI of right hand. IMPRESSION: Fifth MCP joint injury. There is a tear of the sagittal band of the fifth MCP joint on the ulnar side. There is a high-grade partial tear on the radial side. There is a tear versus high-grade partial tear of the radial collateral ligament of the fifth MCP joint. There is a grade 1 strain of the extensor digitorum tendon near the base of the fifth tarsal phalanx. There is trace joint effusion. There is minimal focal marrow hyperemia in the radial side of the head and neck of the fifth metacarpal Allergies Sulfacetamide Sodium Allergy (Unknown, Uncoded 10/01/24 14:12) rash HPI HPI O/V RT hand MRI review: Details: [place] is a 44 year old right hand dominant man who presents for an MRI review of his right small finger MCP joint injury, after a fall, DOI: ~05/14/24 the patient thinks it might have been the middle of March. He says he fell down his stairs. He was seen by ALFONSO Montanez and instructed to Se-tape his fingers and attend OT hand therapy to work on ROM & function. He complains primarily of limited ROM in his small finger, and says he still struggles to fully extend when opening his hand. He is frustrated by this limitation since his injury. 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 Review of Systems Const All systems reviewed & are unremarkable except as noted in HPI and below Physical Exam Const General: cooperative, healthy appearing and no acute distress Orientation/consciousness: patient oriented x3 HEENT Head: Yes normocephalic and Yes atraumatic Eyes EOM: EOMs intact bilaterally Resp Effort & Inspection: normal respiratory effort and able to speak in complete sentences Cardio Jugular venous distension: no JVD Skin General skin exam: turgor normal Rashes: no rashes Neuro General: patient oriented x3 Extrem Other: Evaluation of Right Upper Extremity: The patient is alert, oriented, and in no acute distress Neuro: Median, Ulnar, Radial nerves motor and sensory intact and sensation is normal to the tips of all digits Vascular: Cap refill brisk ROM: He can bring his fingers closed to a fist and back into extension, actively No subluxation of the ECU tendon when he makes a tight fist. Good active extension to neutral. He cannot hyperextend at the Right small finger MCP joint, compared to ~20 degrees of hyperextension the left small finger at the MCP joint Skin: No lacerations or abrasions. General: No Ecchymosis. No swelling, and not particularly tender. No Erythema or evidence of infection. Right hand MRI: MR/MR hand RT wo/w con IMPRESSION: Fifth MCP joint injury. There is a tear of the sagittal band of the fifth MCP joint on the ulnar side. There is a high-grade partial tear on the radial side. There is a tear versus high-grade partial tear of the radial collateral ligament of the fifth MCP joint. There is a grade 1 strain of the extensor digitorum tendon near the base of the fifth tarsal phalanx. There is trace joint effusion. There is minimal focal marrow hyperemia in the radial side of the head and neck of the fifth metacarpal. Electronically signed by: Justo Bailey MD 09/06/2024 Psych Appearance: grossly normal Affect: normal affect Attitude: cooperative Assessment & Plan Assessment & Plan (1) Sagittal band rupture at metacarpophalangeal joint: Comment: R Code(s): S63.659A - Sprain of metacarpophalangeal joint of unspecified finger, initial encounter Category: Medical (2) Sprain of right little finger: Code(s): S63.616A - Unspecified sprain of right little finger, initial encounter Category: Medical (3) Finger pain, right: Code(s): M79.644 - Pain in right finger(s) Category: Medical Plan Assessment & Plan: 1. Right small finger MCP joint radial & ulnar sagittal band tear 2. Right small finger MCP joint radial collateral ligament sprain S/P fall, DOI: ~05/14/24 I educated him about this condition & reviewed his MRI results with him She is hand appears to be improving. I discussed treatment options I recommend activity modification, and he is in agreement At this time, patient is informed that there is no surgical intervention indicated for this injury, and that I think this will likely continue to improve on its own. I ordered OT hand therapy to work on ROM, strengthening, and normalizing function He is happy with the plan. He will follow up prn Scribed for No Hudson MD by Everette Santos, medical or surgical instrument maker, on 10/01/24 at 2:30 PM, EST. Orders: Orders OT Evaluation and Treatment Today M66.241 - Spontaneous rupture of extensor tendons, right hand, M79.644 - Pain in right finger(s), S63.616A - Unspecified sprain of right little finger, initial encounter Coding Level of Care Code Est Pt Level 4 (14310) Diagnoses Sagittal band rupture at metacarpophalangeal joint S63.659A Sprain of right little finger S63.616A Finger pain, right M79.644
--- OUTSIDE RECORDS SUMMARY | 2024-10-01 15:00 | XMS_ITS | Clinical Summary ---
Author Organization [facility] Address [address] [place] [id number] Phone Care Team Providers Care Alkylation Operator Name Role Phone Sofi Carmichael MD Primary Care Provider [phone] Allergies Active Allergy Reactions Criticality Noted Date Comments Sulfa (Sulfonamide Antibiotics) Hives,Rash Low 09/2017 Medications OMEPRAZOLE ORAL Take by mouth. Active oxyCODONE 5 MG immediate release tablet 3 Active triamcinolone acetonide 0.1 % cream Apply topically 2 (two) times a day. 60 g 3 Active Active Problems Problem Noted Date Diagnosed Date Posttraumatic stress disorder 06/29/2022 Gastroesophageal reflux disease 06/29/2022 06/29/2022 Patellofemoral syndrome 06/29/2022 06/30/19 Social History Tobacco Use Types Packs/Day Years Used Date Smoking Tobacco: Former Smokeless Tobacco: Never Tobacco Cessation:Counseling Given: Not Answered Alcohol Use Standard Drinks/Week Comments Yes 0 (1 standard drink = 0.6 oz pur e alcohol) 1-2 per month Education Answer Date Recorded Are you interested in more education? Not on ramiro e 06/17/2022 Are you concerned about learning? Not on file 06/17/2022 No 06/17/2022 No 06/17/2022 Digital Access Answer Date Recorded No 07/16/2022 No 07/16/2022 No 07/16/2022 Reliable internet access at home? Not on file 07/16/2022 Device with a working camera? Not on file Intimate Partner Violence Answer Date R ecorded Are you denied basic needs s uch as food, clothing, or medical care? No 07/25/2022 In the past 12 months have y ou been in a relationship with a person who hurts, threatens, or tries to control you? No 07/25/2022 Are you denied basic needs s uch as food, clothing, or medical care? No 07/25/2022 In the past 12 months have y ou been in a relationship with a person who hurts, threatens, or tries to control you? No 07/25/2022 Sex and Gender Information Value Date Recorded Sex Assigned at Male 04/01/2020 2:43 PM EST Legal Sex Male 5:07 PM EDT Gender Identity Male 04/01/2020 2:43 PM EST Sexual Orientation Choose not to disclose 2017 5:21 PM EDT Last Filed Vital Signs Vital Sign Reading Time Taken Comments Blood Pressure 141/95 07/25/2022 3:25 PM EDT Pulse 73 07/25/2022 3:25 PM EDT Temperature 36.7 C (98.1 F) 07/25/2022 3:25 PM EDT Respiratory Rate 11 07/25/2022 3:25 PM EDT Oxygen Saturation 99% 07/25/2022 3:25 PM EDT Inhaled Oxygen Concentration - - Weight 113.4 kg (250 lb) 07/25/2022 11:51 AM EDT Height 185.4 cm (6' 1 ) 07/25/2022 11:51 AM EDT Body Mass Index 32.98 07/25/2022 11:51 AM EDT Plan of Treatment Health Maintenance Due Date Last Done Comments LIPID PANEL 1982 DEPRESSION SCREENING 1994 SMOKING Hx and SMOKELESS TOBACCO SCREENING 1995 Adult Td,Tdap Booster 04/28/2020 04/28/2010 , 05/25/2004, 03/02/2004, Additional history exists COVID-19 VACCINE () 10/22/2023 05/29/2020, 05/08/2020 SCREENING FOR DIABETES 07/25/2025 07/25/2022 MENINGOCOCCAL VACCINES (ACWY) Aged Out 03/02/2004 No longer eligible based on patient's age to complete this topic HEPATITIS A VACCINES Aged Out 03/02/2005, 05/25/2004, 03/02/2004 No longer eligible based on patient's age to complete this topic HEPATITIS C SCREENING Completed 06/29/2022 HIV ONE-TIME SCREENING (18-65 YEARS) Completed 06/29/2022 HIB VACCINES Aged Out No longer eligi ble based on patient's age to complete this topic MENINGOCOCCAL VACCINES (B) Aged Out N o longer eligible based on patient's age to complete this topic PNEUMOCOCCAL VACCINES (0-49 years) Aged Out No longer eligible based on patient's age to complete this topic Medical Devices Not on file Procedures Procedure Name Priority Date/Time Associated Diagnosis Comments HEPATITIS C ANTIBODY, QUALITATIVE Routine 06/29/2022 3:56 PM EDT Need for hepatitis C screening test from Last 3 Months or Most Recently Relevant to Health Maintenance Results * Hepatitis C antibody, qualitative (06/29/2022 3:56 PM EDT) HCV NON-REACTIV E NON-REACTI VE [facility] Blood 06/29/2022 3:56 PM EDT 06/29/2022 5:03 PM EDT Alejandro Mckeon PA-C LAB BLOOD ORDERABLES Fin al Result [address] [id number] from Last 3 Months or Most Recently Relevant to Health Maintenance Insurance [facility] Member Subscriber Plan / Payer (Ef fective 2020-Present) Name:Houston Pino Relation to Subscriber:Self Name:Houston iPno Payer ID:[id number] (NAIC) Group ID:Not on file Type:Indemnity Address: [facility] [employer] [id number] [facility] Care Teams Alkylation Operator Relationship Specialty Start Date End Date Sofi Carmichael MD [address] [place] [id number] PCP - General Internal Medicine 05/12/22 Additional Source Comments The information contained in this document represents components of the legal health record. It is not the complete legal health record.[facility]
--- OUTSIDE RECORDS SUMMARY | 2024-10-01 15:00 | XMS_ITS | Clinical Summary ---
Author Organization [facility] Address [address] [place] [address] Care Team Providers Care Histologic Aide Name Role Phone Unavailable Primary Care Provider [...] of 3 - 19+ 3-dose series) 2001 HPV Vaccines (1 - 3-dose SCD M series) 2009 COVID-19 Vaccine (2023-2 5 season) 2023 Pneumococcal Vaccine: Pediat nancie (0-5 Years) and At-Risk Patients (6 to 49 Years) Aged Out No longer eligible b ased on patient's age to complete this topic
--- OUTSIDE RECORDS SUMMARY | 2024-10-01 15:00 | XMS_ITS | Clinical Summary ---
Author Organization [facility] Address [address] [place] [address] Care Team Providers Care Flight Follower Name Role Phone Unavailable Primary Care Provider Unavailabl e Social History Tobacco Use Types Packs/Day Years Used Date Smoking Tobacco: Never Assessed Sex and Gender Information Value Date Recorded Sex Assigned at Not on file Gender Identity Not on file Sexual Orientation Not on file Plan of Treatment Not on file
== END 2024-10-01 14:33 | disposition home or self-care (01) ==
LOC: HO.HOS 14:00
PROVIDERS: Visit Provider Orthopaedic Surgery
DX: S63.656A Sprain of metacarpophalangeal joint of right little finger, initial encounter (principal); S63.616A Unspecified sprain of right little finger, initial encounter; M79.644 Pain in right finger(s)
CPT/HCPCS: 99213

== ENCOUNTER → 2024-10-01 13:59 | Outpatient (BNVA) | payer OTHER, SELFPAY | PROVIDERS: Visit Provider Orthopaedic Surgery | DX: S63.656A Sprain of metacarpophalangeal joint of right little finger, initial encounter (principal); S63.616A Unspecified sprain of right little finger, initial encounter; W10.9XXA Fall (on) (from) unspecified stairs and steps, initial encounter; Y93.01 Activity, walking, marching and hiking; Y92.9 Unspecified place or not applicable; Y99.9 Unspecified external cause status; M79.644 Pain in right finger(s) | CPT/HCPCS: 99212 ==